=== PATIENT | male | born 1940 | race Caucasian/White ===

== ENCOUNTER 2017-08-21 21:05 | Inpatient (IN) | payer MEDICARE, OTHER, SELFPAY ==
[2017-08-21] VITALS (7 sets, daily range): BP systolic 155–172; BP diastolic 65–90; PULSE 80–86; RESP 12–24; TEMP 37.3; O2SAT 81–99; BMI 23.3
--- NOTE | 2017-08-21 21:19 | EKG12_ITS ---
Test Reason : SOB Blood Pressure : / mmHG Vent. Rate : 082 BPM Atrial Rate : 082 BPM P-R Int : 124 ms QRS Dur : 070 ms QT Int : 360 ms P-R-T Axes : 082 041 066 degrees QTc Int : 420 ms Normal sinus rhythm Septal infarct , age undetermined Abnormal ECG Confirmed by MARITA ASHBY ([id number]), primer expeditor and drier YESENIA MCHUGH ([id number]) on 08/23/2017 12:00:06 PM Referred By: LOIDA Confirmed By:MARITA ASHBY
--- NOTE | 2017-08-21 21:19 | RAD_ITS ---
XR Chest 2 Views INDICATION: COUGH COMPARISON: August 04, 2017 TECHNIQUE: 2 views of the chest FINDINGS: The heart size is enlarged. Central pulmonary vascularity is prominent. Bilateral perihilar opacities are noted and right middle lobe and left basilar chest consolidation. Associated small left-sided pleural effusion. The findings are worsened compared to the prior study. RAD/Chest PA and Lateral IMPRESSION: Bilateral perihilar, right middle lobe and left lower lobe airspace disease with left-sided pleural effusion, most compatible with bilateral pneumonia. Follow-up to resolution is recommended. at 2226 Reported and signed by: Michela Hendricks MD Electronically Signed: Michela Hendricks MD at 21:25 EST Tel , Service support ,
[2017-08-21] MEDS: Ipratropium/Albuterol Sulfate 3 ML AMPUL.NEB INHALATION (21:30)
--- NOTE | 2017-08-21 21:40 | CPS ---
PT WEARS 3L OXYGEN AT HOME.
[2017-08-21 21:45] LABS: Absolute Lymphocyte Count 1.15 X10^3/ul (0.83-4.51); Absolute Neutrophil Count 6.8 X10^3/uL (2.0-7.7); Basophil# 0.04 X10^3/uL; Basophil% 0.4 % (0-1); Eosinophil# 0.26 X10^3/uL; Eosinophils% 2.9 % (0-5); Hematocrit 26.2 % (40-54); Hemoglobin 8.1 g/dl (13.0-16.5); Lymphocyte # 1.15 X10^3/ul (4.0); Lymphocyte % 12.9 % (19-41); Mean Corp Hgb Conc 30.9 g/gl (32-36); Mean Corpuscular Hgb 31.9 pg (27.0-32.0); Mean Corpuscular Volume 103.1 fL (80-94); Mean Platelet Vol. 9.5 fl (6.2-12.0); Monocyte# 0.65 X10^3/uL; Monocyte% 7.3 % (0-10); Neutrophil # 6.81 X10^3/uL (2.7-7.7); Neutrophil % 76.2 % (47-70); Platelet Count 331 K/mm3 (150-450); RBC Distribution Width CV 15.8 % (11.6-14.6); RBC Distribution Width SD 57.7 fl (35.1-43.9); Red Blood Count 2.54 M/mm3 (4.6-6.2); White Blood Count 8.9 K/mm3 (4.4-11.0)
[2017-08-21 21:46] LABS: POSITIVE COUNT NO; POSITIVE DIFFERENTIAL NO; POSITIVE MORPHOLOGY NO
--- NOTE | 2017-08-21 21:58 | ED.RN ---
STILL NEEDS VERIFIED NO LW OR POA
[2017-08-21 22:04] LABS: Lactic Acid 0.6 mmol/L (0.4-2.0)
[2017-08-21 22:06] LABS: Anion Gap 13 (5-15); BUN 80 mg/dL (7-18); BUN/Creat Ratio 9.4 RATIO (10-20); Calcium,Total 7.7 mg/dL (8.5-10.1); Chloride 94 mmol/L (98-107); Creatinine, Serum 8.51 mg/dL (0.70-1.30); EST Glomerular Filtration Rate 7 mL/min (>60); Est Glom Filt Rate - Afr Amer 8 mL/min (>60); Estimated Creatinine Clearance 7.26 ml/min; Glucose 93 mg/dL (70-110); Potassium 5.2 mmol/L (3.5-5.1); Sodium Level 130 mmol/L (136-145)
[2017-08-21] MEDS: MethylPREDNISolone 125 MG/2 ML Vial IV (22:33)
--- NOTE | 2017-08-21 22:46 | PCM.HP.STD ---
Problem List (1) PAF (paroxysmal atrial fibrillation) Status: Chronic (2) IBS (irritable bowel syndrome) Status: Chronic Qualifiers: Irritable bowel syndrome type: unspecified Qualified Code(s): K58.9 - Irritable bowel syndrome without diarrhea (3) Hyperlipemia Status: Chronic Qualifiers: Hyperlipidemia type: unspecified Qualified Code(s): E78.5 - Hyperlipidemia, unspecified (4) HCAP (healthcare-associated pneumonia) Status: Acute (5) ESRD (end stage renal disease) Status: Chronic (6) HTN (hypertension) Status: Chronic Qualifiers: Hypertension type: essential hypertension Qualified Code(s): I10 - Essential (primary) hypertension (7) Rheumatoid arthritis Status: Chronic Qualifiers: Rheumatoid arthritis location: unspecified site Rheumatoid factor presence: unspecified presence Qualified Code(s): M06.9 - Rheumatoid arthritis, unspecified (8) Chronic back pain Status: Chronic Qualifiers: Back pain location: back pain in unspecified location Back pain laterality: unspecified Qualified Code(s): M54.9 - Dorsalgia, unspecified; G89.29 - Other chronic pain (9) Acute respiratory failure with hypoxia Status: Acute History of Present Illness Date of Admission: 08/21/17 Chief Complaint: Dyspnea The patient is a 76 y/o M w/ PMHx: Chronic Diastolic CHF, PAF, Recent dx pericardial effusion, Myoclonic Jerks, ESRD on PD (Dr. Lee), Rheumatoid arthritis, Chronic Back Pain, HTN, Chronic COPD, Chronic Macrocytic anemia recently discharged on 08/07/17 following evaluation and treatment for acute hypoxic respiratory failure secondary to volume overload w/ suspected acute on chronic diastolic heart failure requiring HD x 1 with temp cath placed during prior admission but discontinued upon discharge with 3L NC upon discharge as well as noted thoracentesis who now presents to the ED with ongoing dyspnea, productive cough with yellow sputum with wheezing, worsening over the last 24 hours. In the ED work-up included T 99.2, HR 80s, BP 172/65-->155/69, RR 16, 81% on RA-->99% on NRB-->96% on 6L NC, CBC w/ WBC 8.9, Hgb 8.1, Plts 331 without marked shift, BMP w/ Na 130, K 5.2, Chl 94, BUN/Cr 80/8.51, LA 0.6, trop 0.02, CXR w/ bilateral perihilar right middle lobe and left lower lobe airspace disease with left-sided pleural effusion compatible with bilateral pneumonia, Bld Cx x 2 obtained and pending. In the ED patient administered solumedrol, vanc, rocephin, azithromycin. Past Medical History Past Medical History (Chronic Problems): Chronic Problems (Last Updated 08/16/17 @ 15:08 by Francheska Mahoney) PAF (paroxysmal atrial fibrillation) (Chronic) IBS (irritable bowel syndrome) (Chronic) Hyperlipemia (Chronic) PEARSON (dyspnea on exertion) (Chronic) ESRD (end stage renal disease) (Chronic) HTN (hypertension) (Chronic) Rheumatoid arthritis (Chronic) Chronic back pain (Chronic) Allergies Penicillins Allergy (Verified 08/21/17 21:07) Hives levofloxacin [From Levaquin] Adverse Reaction (Severe, Verified 08/21/17 21:07) Other fluid in lungs Home Medications: Ambulatory Orders Medication Instructions Recorded Amlodipine [Norvasc] 10 mg PO DAILY 12/19/13 Aspirin [Aspirin, Baby] 81 mg PO DAILY@0800 12/19/13 Atorvastatin Calcium [Lipitor] 20 mg PO QHS 12/19/13 Leflunomide [Arava] 20 mg PO DAILY 12/19/13 [place]-3 Fatty Acids/Fish Oil 1 ea PO BID 12/19/13 [[place] 3 1,000 mg Softgel] PredniSONE 10 mg PO PRN PRN 12/19/13 Albuterol Inhaler [Ventolin Hfa] 2 puff INHALATION Q4H PRN PRN 07/31/17 Folic Acid 1 mg PO DAILY@0800 07/31/17 Ipratropium/Albuterol Sulfate 3 ml INHALATION TID PRN PRN 07/31/17 [Duoneb] Lactobacillus Rhamnosus GG 2 ea PO TID 07/31/17 [Culturelle] Sennosides/Docusate Sodium 2 ea PO BID 07/31/17 [Senna-Docusate Sodium Tablet] Amino AC/Protein Hydr/Whey Pro 2 cap PO DAILY 08/04/17 [Liquacel Liquid Protein] Apixaban [Eliquis] 2.5 mg PO BID #60 tab 08/07/17 Atenolol [Tenormin (beta victoriano)] 50 mg PO DAILY #30 tab 08/07/17 Gabapentin [Neurontin] 100 mg PO TIDCM #90 cap 08/07/17 melatonin 2.5 mg chewable tablet 2.5 mg PO HS PRN 08/09/17 pantoprazole 40 mg tablet,delayed 40 mg PO QAM 08/09/17 release potassium chloride ER 20 mEq 20 meq PO QDAY 08/09/17 tablet,extended release ascorbic acid (vitamin C) 500 mg 500 mg PO DAILY 08/16/17 capsule diphenhydramine 25 mg capsule 25 mg PO ONCE 08/16/17 guaifenesin ER 1,200 mg tablet, 1,200 mg PO Q12H 08/16/17 extended release 12 hr liqua-michel 2 cap PO DAILY 08/16/17 polyethylene glycol 3350 17 17 g PO QDAY PRN 08/16/17 gram/dose oral powder stool softner PO PRN 08/16/17 Calcium Acetate [Phoslo Gel Cap] 1,334 mg PO TIDCM 08/21/17 Furosemide [Lasix] 80 mg PO DAILY 08/21/17 Ipratropium/Albuterol Sulfate 3 ml INHALATION TID PRN 08/21/17 [Duoneb] Oxycodone HCl/Acetaminophen 0.5 tab PO Q4H PRN 08/21/17 [Percocet 5-325] Surgical History: - Smoking Status: Former smoker - *Family History Maternal Family History: Family History (Last Updated 08/16/17 @ 15:10 by Francheska Mahoney) Mother Heart disease Sister Kidney disease Brother CVA (cerebral vascular accident) History Items: Heart Disease - CHF Paternal Family History: Family History (Last Updated 08/16/17 @ 15:10 by Francheska Mahoney) Mother Heart disease Sister Kidney disease Brother CVA (cerebral vascular accident) History Items: No pertinent history, - Review of Systems Constitutional: Reports: Malaise, Weakness, Fatigue. Denies: Chills, Fever, Weight Change HEENT: Denies: Head Aches, Sinus Congestion, Sinus Drainage Cardiovascular: Denies: Chest Pain, Palpitations Respiratory: Reports: Cough, Shortness of Breath, Shortness of breath at rest, Shortness of breath upon exertion, Sputum production, Wheezing Gastrointestinal: Denies: Abdominal Pain, Nausea, Vomiting Genitourinary: Denies: Dysuria Musculoskeletal: Denies: Joint Pain, Joint Tenderness Skin: Denies: Rash, Wounds Neurological: Denies: Numbness, Tingling, Focal weakness Psychiatric: Denies: Anxiety, Depression, Homicidal Ideations, Suicidal Ideations Hematologic/ Lymphatic: Reports: Anemia. Denies: Easy Bruising, Easy Bleeding VTE Information - Inpt Only VTE Present on Admission: No VTE Mechan Device Prophylaxis: SCD's VTE Pharm Prophylaxis ordered?: No Reason prophylaxis not ordered:: Treatment Not Indicated Subjective: Seated upright in the ED bed, currently notably improved from initial presentation, on NC, able to speak in full sentences. Objective: Physical Examination: General: awake, alert, oriented x 3 and cooperative, seated upright in the ED bed, marked improvement from initial presentation, able to speak in full sentences, less accessory muscle usage, decreased RR. Skin: normal color, turgor, no icterus, cyanosis. HEENT: AT/NC, EOMI, PERRLA, dry MM, no carotid bruits or JVD noted. Lungs: Severely diminished breath sounds, greater bilateral bases, coarse breath sounds, diffuse expiratory wheezing, improved from initial presentation but ongoing mild accessory muscle usage and increased respiratory rate. Heart: Regular rate and rhythm; no gallop, rub audible. Abdomen: soft, thin habitus, PD access present, NTTP, ND, normal BS, no HSM. Extremities: no cyanosis, clubbing, or edema. Neurological: patient awake, alert, oriented x 3; cognitive function intact; pupils equally reactive to light and accomodation; cranial nerves II-XII grossly normal, moving all 4 extremities, no focal deficits, strength severely globally decreased secondary to acute presentation. Psychiatric: affect appears normal, no acute evidence of depressive or anxiety feelings. - Physical Exam Vital Signs Temp Pulse Resp BP Pulse Ox 99.2 F H 84 16 155/69 H 95 08/21/17 21:09 08/21/17 22:36 08/21/17 22:36 08/21/17 22:36 08/21/17 22:36 Oxygen Flow Rate 6 Oxygen Delivery Method Nasal Cannula Weight: 153 lb 3.54 oz Body Mass Index (BMI) 23.3 Finger Stick Blood Glucose 129 Laboratory Tests Past 24 Hrs 08/21/17 08/21/17 08/21/17 21:27 21:27 21:27 WBC 8.9 RBC 2.54 L Hgb 8.1 L Hct 26.2 L MCV 103.1 H MCH 31.9 MCHC 30.9 L RDW 15.8 H RDW Differential 57.7 H Plt Count 331 MPV 9.5 Immature Gran % (Auto) 0.300 Neut % (Auto) 76.2 H Lymph % (Auto) 12.9 L [place] % (Auto) 7.3 Eos % (Auto) 2.9 Baso % (Auto) 0.4 Absolute Neuts (auto) 6.8 Absolute Lymphs (auto) 1.15 Total Counted Not Reportable Sodium 130 L Potassium 5.2 H Chloride 94 L Carbon Dioxide 23.0 Anion Gap 13 BUN 80 H Creatinine 8.51 H* Estim Creat Clear Calc 7.26 Est GFR (MDRD) Af Amer 8 L Est GFR (MDRD) Non-Af 7 L BUN/Creatinine Ratio 9.4 L Glucose 93 Lactic Acid 0.6 Calcium 7.7 L Troponin I 0.02 Assessment/Plan The patient is a 76 y/o M w/ PMHx: Chronic Diastolic CHF, PAF, Recent dx pericardial effusion, Myoclonic Jerks, ESRD on PD (Dr. Lee), Rheumatoid arthritis, Chronic Back Pain, HTN, Chronic COPD, Chronic Macrocytic anemia recently discharged on 08/07/17 following evaluation and treatment for acute hypoxic respiratory failure secondary to volume overload w/ suspected acute on chronic diastolic heart failure requiring HD x 1 with temp cath placed during prior admission but discontinued upon discharge with 3L NC upon discharge as well as noted thoracentesis who now presents to the ED with ongoing dyspnea, productive cough with yellow sputum with wheezing, worsening over the last 24 hours. (1) Acute Hypoxic Respiratory Failure secondary to HCAP Pneumonia and concurrent acute on Chronic COPD exacerbation: Will admit to [facility] on telemetry, maintain on oxygen with wean as tolerated to room air, continue ATC duonebs, PRN albuterol, maintain on IV solumedrol, maintain on IV Vancomycin, Rocephin and Azithromycin for HCAP coverage secondary to allergies, HOB, IS parameters w/ pending sputum cultures and urine antigens. Bld cx x 2 obtained in the ED. (2) Chronic Diastolic CHF: Maintain on home regimen eliquis, statin, BB, lasix w/ as noted consult with Nephrology for PD. (3) AOCD: Admission Hgb 8.1, stable, trend. (4) ESRD on PD: Will consult nephrology, continue PD per their direction although given current renal function may require additional HD which would necessitate temporary access placement again. (5) PAF: Maintain on home regimen Eliquis as well as atenolol. (6) Hypertension: Continue home regimen including Norvasc, Lasix, atenolol, PRN hydralazine. (7) Hyperlipidemia: Continue home statin regimen. (8) Rheumatoid Arthritis: Holding oral prednisone given taper for #1. (9) GERD: PPI. (10) DVT Prophylaxis: SCDs, eliquis. (11) CODE status: Discussed CODE status at length including difference between FULL code, DNR-CCA and DNR-CC status. Following discussions about the differences in these status, FULL CODE status. Advanced Care Planning Face to Face Time: 17 minutes. Code Visit Inpatient E&M: 65731 Init Hosp L3 Procedures: 20131 Advncd Care Plan 30 Min
--- NOTE | 2017-08-21 22:59 | ED.VISSUMM ---
- ER Visit Summary Date of Service: 08/21/17 Chief Complaint: Shortness of breath History of Present Illness: The patient is a [address] Lee, Dr. Yost, Dr. Crystal, and Dr. Vallecillo. He reports that he has chronic shortness of breath it is gotten much worse today. It is gradually gotten worse. Is mild currently and severe when he walks or lays flat. Is relieved by his oxygen and albuterol. Patient reports that he has a slight cough productive yellow sputum without blood. No fever, chills, cold sweats, chest pain, or other complaints. Physical Examination: Vitals: 99.2, 172/65, 80, 20, 81% on room air which is hypoxic.. General: Well-nourished and well-developed. Head: Normocephalic atraumatic. Neck: Supple, no lymphadenopathy. No JVD. Nontender. Cardiovascular: Regular rate and rhythm. 2 out of 6 systolic murmur. Respiratory: No respiratory distress with moderate wheezing bilaterally. He does have greatly decreased air movement.. Abdominal: Soft, nontender, nondistended, normal bowel sounds. No guarding, rebound, or peritoneal signs. Back: Nontender. Extremities: Nontender, no edema. Skin: Normal color, no rash. Neurologic: Alert and oriented ?3. Cranial nerves II through XII are intact. Normal strength and sensation. Psych: Normal affect. Test Results: EKG is sinus at 82 with no acute changes. Troponin 0 0.02. His CBC is marked for an H&H of 8.1 and 26.2, segmented neutrophils of 76, lymphocytes of 13. His hemoglobin ranged between 7.7 and 9.2 on his admission earlier this year. Chem-7 is marked for sodium 130, potassium 5.2, chloride 94, BUN of 80, creatinine of 8.51, calcium 7.7. Creatinine had ranged between 3.676.83 on his hospitalization earlier this year. Lactic acid is 0.6. Chest x-ray is read by the radiologist as bilateral perihilar, right middle lobe, left lower lobe airspace disease with a left pleural effusion. This is most compatible with bilateral pneumonia. Emergency Department Course and Treatment: Patient was given albuterol Atrovent aerosols. He was placed on 4 L nasal cannula. His post oxygen in the 90s any feels much improved. He is refused BiPAP. Patient technically is a healthcare acquired pneumonia. He is allergic to penicillin and Levaquin. He is given aztreonam and vancomycin IV. To replace the Levaquin he is given Zithromax and Rocephin IV. Patient in his last hospitalization had one round of hemodialysis. He reports the dialysis catheter was removed and he is does not have access at this time. Discussed the fact that he will likely need to have hemodialysis at this time as well. Treatment Plan: Patient was discussed with Dr. Berman. He will be admitted for further evaluation and treatment. Disposition: Admitted in improved, but serious condition. Impression: 1. Pneumonia, healthcare acquired. 2. Left pleural effusion. 3. Acute on chronic respiratory failure. 4. End-stage renal disease on peritoneal dialysis. 5. Anemia. This note was generated with [employer] software. It may contain incorrect words, spelling, and punctuation that were not noted in review of the chart prior to signing ED Disposition - Plan for ED Patient: Chief Complaint: Shortness of Breath Referrals: Arvind Vallecillo MD [Primary Care Provider] -
--- NOTE | 2017-08-21 23:07 | ED.DCSUM_ITS ---
- ER Visit Summary Date of Service: 08/21/17 Chief Complaint: Shortness of breath History of Present Illness: The patient is a [address] Lee, Dr. Yost , Dr. Crystal, and Dr. Vallecillo. He reports that he has chronic shortness of breath it is gotten much worse today. It is gradually gotten worse. Is mild currently and severe when he walks or lays flat. Is relieved by his oxygen and albuterol. Patient reports that he has a slight cough productive yellow sputum without blood. No fever, chills, cold sweats, chest pain, or other complaints. Physical Examination: Vitals: 99.2, 172/65, 80, 20, 81% on room air which is hypoxic.. General: Well-nourished and well-developed. Head: Normocephalic atraumatic. Neck: Supple, no lymphadenopathy. No JVD. Nontender. Cardiovascular: Regular rate and rhythm. 2 out of 6 systolic murmur. Respiratory: No respiratory distress with moderate wheezing bilaterally. He does have greatly decreased air movement.. Abdominal: Soft, nontender, nondistended, normal bowel sounds. No guarding, rebound, or peritoneal signs. Back: Nontender. Extremities: Nontender, no edema. Skin: Normal color, no rash. Neurologic: Alert and oriented ?3. Cranial nerves II through XII are intact. Normal strength and sensation. Psych: Normal affect. Test Results: EKG is sinus at 82 with no acute changes. Troponin 0 0.02. His CBC is marked for an H&H of 8.1 and 26.2, segmented neutrophils of 76, lymphocytes of 13. His hemoglobin ranged between 7.7 and 9.2 on his admission earlier this year. Chem-7 is marked for sodium 130, potassium 5.2, chloride 94 , BUN of 80, creatinine of 8.51, calcium 7.7. Creatinine had ranged between 3.676.83 on his hospitalization earlier this year. Lactic acid is 0.6. Chest x -ray is read by the radiologist as bilateral perihilar, right middle lobe, left lower lobe airspace disease with a left pleural effusion. This is most compatible with bilateral pneumonia. Emergency Department Course and Treatment: Patient was given albuterol Atrovent aerosols. He was placed on 4 L nasal cannula. His post oxygen in the 90s any feels much improved. He is refused BiPAP. Patient technically is a healthcare acquired pneumonia. He is allergic to penicillin and Levaquin. He is given aztreonam and vancomycin IV. To replace the Levaquin he is given Zithromax and Rocephin IV. Patient in his last hospitalization had one round of hemodialysis. He reports the dialysis catheter was removed and he is does not have access at this time. Discussed the fact that he will likely need to have hemodialysis at this time as well. Treatment Plan: Patient was discussed with Dr. Berman. He will be admitted for further evaluation and treatment. Disposition: Admitted in improved, but serious condition. Impression: 1. Pneumonia, healthcare acquired. 2. Left pleural effusion. 3. Acute on chronic respiratory failure. 4. End-stage renal disease on peritoneal dialysis. 5. Anemia. This note was generated with [employer] software. It may contain incorrect words, spelling, and punctuation that were not noted in review of the chart prior to signing ED Disposition - Plan for ED Patient: Chief Complaint: Shortness of Breath Referrals: Arvind Vallecillo MD [Primary Care Provider] -
--- NOTE | 2017-08-21 23:09 | HP.PCM_ITS ---
Problem List (1) PAF (paroxysmal atrial fibrillation) Status: Chronic (2) IBS (irritable bowel syndrome) Status: Chronic Qualifiers: Irritable bowel syndrome type: unspecified Qualified Code(s): K58.9 - Irritable bowel syndrome without diarrhea (3) Hyperlipemia Status: Chronic Qualifiers: Hyperlipidemia type: unspecified Qualified Code(s): E78.5 - Hyperlipidemia , unspecified (4) HCAP (healthcare-associated pneumonia) Status: Acute (5) ESRD (end stage renal disease) Status: Chronic (6) HTN (hypertension) Status: Chronic Qualifiers: Hypertension type: essential hypertension Qualified Code(s): I10 - Essential (primary) hypertension (7) Rheumatoid arthritis Status: Chronic Qualifiers: Rheumatoid arthritis location: unspecified site Rheumatoid factor presence : unspecified presence Qualified Code(s): M06.9 - Rheumatoid arthritis, unspecified (8) Chronic back pain Status: Chronic Qualifiers: Back pain location: back pain in unspecified location Back pain laterality : unspecified Qualified Code(s): M54.9 - Dorsalgia, unspecified; G89.29 - Other chronic pain (9) Acute respiratory failure with hypoxia Status: Acute History of Present Illness Date of Admission: 08/21/17 Chief Complaint: Dyspnea The patient is a 76 y/o M w/ PMHx: Chronic Diastolic CHF, PAF, Recent dx pericardial effusion, Myoclonic Jerks, ESRD on PD (Dr. Lee), Rheumatoid arthritis, Chronic Back Pain, HTN, Chronic COPD, Chronic Macrocytic anemia recently discharged on 08/07/17 following evaluation and treatment for acute hypoxic respiratory failure secondary to volume overload w/ suspected acute on chronic diastolic heart failure requiring HD x 1 with temp cath placed during prior admission but discontinued upon discharge with 3L NC upon discharge as well as noted thoracentesis who now presents to the ED with ongoing dyspnea, productive cough with yellow sputum with wheezing, worsening over the last 24 hours. In the ED work-up included T 99.2, HR 80s, BP 172/65-->155/69, RR 16, 81 % on RA-->99% on NRB-->96% on 6L NC, CBC w/ WBC 8.9, Hgb 8.1, Plts 331 without marked shift, BMP w/ Na 130, K 5.2, Chl 94, BUN/Cr 80/8.51, LA 0.6, trop 0.02, CXR w/ bilateral perihilar right middle lobe and left lower lobe airspace disease with left-sided pleural effusion compatible with bilateral pneumonia, Bld Cx x 2 obtained and pending. In the ED patient administered solumedrol, vanc , rocephin, azithromycin. Past Medical History Past Medical History (Chronic Problems): Chronic Problems (Last Updated 08/16/17 @ 15:08 by Francheska Mahoney) PAF (paroxysmal atrial fibrillation) (Chronic) IBS (irritable bowel syndrome) (Chronic) Hyperlipemia (Chronic) PEARSON (dyspnea on exertion) (Chronic) ESRD (end stage renal disease) (Chronic) HTN (hypertension) (Chronic) Rheumatoid arthritis (Chronic) Chronic back pain (Chronic) Allergies Penicillins Allergy (Verified 08/21/17 21:07) Hives levofloxacin [From Levaquin] Adverse Reaction (Severe, Verified 08/21/17 21:07) Other fluid in lungs Home Medications: Ambulatory Orders Medication Instructions Recorded Amlodipine [Norvasc] 10 mg PO DAILY 12/19/13 Aspirin [Aspirin, Baby] 81 mg PO DAILY@0800 12/19/13 Atorvastatin Calcium [Lipitor] 20 mg PO QHS 12/19/13 Leflunomide [Arava] 20 mg PO DAILY 12/19/13 [place]-3 Fatty Acids/Fish Oil 1 ea PO BID 12/19/13 [[place] 3 1,000 mg Softgel] PredniSONE 10 mg PO PRN PRN 12/19/13 Albuterol Inhaler [Ventolin Hfa] 2 puff INHALATION Q4H PRN PRN 07/31/17 Folic Acid 1 mg PO DAILY@0800 07/31/17 Ipratropium/Albuterol Sulfate 3 ml INHALATION TID PRN PRN 07/31/17 [Duoneb] Lactobacillus Rhamnosus GG 2 ea PO TID 07/31/17 [Culturelle] Sennosides/Docusate Sodium 2 ea PO BID 07/31/17 [Senna-Docusate Sodium Tablet] Amino AC/Protein Hydr/Whey Pro 2 cap PO DAILY 08/04/17 [Liquacel Liquid Protein] Apixaban [Eliquis] 2.5 mg PO BID #60 tab 08/07/17 Atenolol [Tenormin (beta victoriano)] 50 mg PO DAILY #30 tab 08/07/17 Gabapentin [Neurontin] 100 mg PO TIDCM #90 cap 08/07/17 melatonin 2.5 mg chewable tablet 2.5 mg PO HS PRN 08/09/17 pantoprazole 40 mg tablet,delayed 40 mg PO QAM 08/09/17 release potassium chloride ER 20 mEq 20 meq PO QDAY 08/09/17 tablet,extended release ascorbic acid (vitamin C) 500 mg 500 mg PO DAILY 08/16/17 capsule diphenhydramine 25 mg capsule 25 mg PO ONCE 08/16/17 guaifenesin ER 1,200 mg tablet, 1,200 mg PO Q12H 08/16/17 extended release 12 hr liqua-michel 2 cap PO DAILY 08/16/17 polyethylene glycol 3350 17 17 g PO QDAY PRN 08/16/17 gram/dose oral powder stool softner PO PRN 08/16/17 Calcium Acetate [Phoslo Gel Cap] 1,334 mg PO TIDCM 08/21/17 Furosemide [Lasix] 80 mg PO DAILY 08/21/17 Ipratropium/Albuterol Sulfate 3 ml INHALATION TID PRN 08/21/17 [Duoneb] Oxycodone HCl/Acetaminophen 0.5 tab PO Q4H PRN 08/21/17 [Percocet 5-325] Surgical History: - Smoking Status: Former smoker - *Family History Maternal Family History: Family History (Last Updated 08/16/17 @ 15:10 by Francheska Mahoney) Mother Heart disease Sister Kidney disease Brother CVA (cerebral vascular accident) History Items: Heart Disease - CHF Paternal Family History: Family History (Last Updated 08/16/17 @ 15:10 by Francheska Mahoney) Mother Heart disease Sister Kidney disease Brother CVA (cerebral vascular accident) History Items: No pertinent history, - Review of Systems Constitutional: Reports: Malaise, Weakness, Fatigue. Denies: Chills, Fever, Weight Change HEENT: Denies: Head Aches, Sinus Congestion, Sinus Drainage Cardiovascular: Denies: Chest Pain, Palpitations Respiratory: Reports: Cough, Shortness of Breath, Shortness of breath at rest, Shortness of breath upon exertion, Sputum production, Wheezing Gastrointestinal: Denies: Abdominal Pain, Nausea, Vomiting Genitourinary: Denies: Dysuria Musculoskeletal: Denies: Joint Pain, Joint Tenderness Skin: Denies: Rash, Wounds Neurological: Denies: Numbness, Tingling, Focal weakness Psychiatric: Denies: Anxiety, Depression, Homicidal Ideations, Suicidal Ideations Hematologic/ Lymphatic: Reports: Anemia. Denies: Easy Bruising, Easy Bleeding VTE Information - Inpt Only VTE Present on Admission: No VTE Mechan Device Prophylaxis: SCD's VTE Pharm Prophylaxis ordered?: No Reason prophylaxis not ordered:: Treatment Not Indicated Subjective: Seated upright in the ED bed, currently notably improved from initial presentation, on NC, able to speak in full sentences. Objective: Physical Examination: General: awake, alert, oriented x 3 and cooperative, seated upright in the ED bed, marked improvement from initial presentation, able to speak in full sentences, less accessory muscle usage, decreased RR. Skin: normal color, turgor, no icterus, cyanosis. HEENT: AT/NC, EOMI, PERRLA, dry MM, no carotid bruits or JVD noted. Lungs: Severely diminished breath sounds, greater bilateral bases, coarse breath sounds, diffuse expiratory wheezing, improved from initial presentation but ongoing mild accessory muscle usage and increased respiratory rate. Heart: Regular rate and rhythm; no gallop, rub audible. Abdomen: soft, thin habitus, PD access present, NTTP, ND, normal BS, no HSM. Extremities: no cyanosis, clubbing, or edema. Neurological: patient awake, alert, oriented x 3; cognitive function intact; pupils equally reactive to light and accomodation; cranial nerves II-XII grossly normal, moving all 4 extremities, no focal deficits, strength severely globally decreased secondary to acute presentation. Psychiatric: affect appears normal, no acute evidence of depressive or anxiety feelings. - Physical Exam Vital Signs Temp Pulse Resp BP Pulse Ox 99.2 F H 84 16 155/69 H 95 08/21/17 21:09 08/21/17 22:36 08/21/17 22:36 08/21/17 22:36 08/21/17 22:36 Oxygen Flow Rate 6 Oxygen Delivery Method Nasal Cannula Weight: 153 lb 3.54 oz Body Mass Index (BMI) 23.3 Finger Stick Blood Glucose 129 Laboratory Tests Past 24 Hrs 08/21/17 08/21/17 08/21/17 21:27 21:27 21:27 WBC 8.9 RBC 2.54 L Hgb 8.1 L Hct 26.2 L MCV 103.1 H MCH 31.9 MCHC 30.9 L RDW 15.8 H RDW Differential 57.7 H Plt Count 331 MPV 9.5 Immature Gran % (Auto) 0.300 Neut % (Auto) 76.2 H Lymph % (Auto) 12.9 L [place] % (Auto) 7.3 Eos % (Auto) 2.9 Baso % (Auto) 0.4 Absolute Neuts (auto) 6.8 Absolute Lymphs (auto) 1.15 Total Counted Not Reportable Sodium 130 L Potassium 5.2 H Chloride 94 L Carbon Dioxide 23.0 Anion Gap 13 BUN 80 H Creatinine 8.51 H* Estim Creat Clear Calc 7.26 Est GFR (MDRD) Af Amer 8 L Est GFR (MDRD) Non-Af 7 L BUN/Creatinine Ratio 9.4 L Glucose 93 Lactic Acid 0.6 Calcium 7.7 L Troponin I 0.02 Assessment/Plan The patient is a 76 y/o M w/ PMHx: Chronic Diastolic CHF, PAF, Recent dx pericardial effusion, Myoclonic Jerks, ESRD on PD (Dr. Lee), Rheumatoid arthritis, Chronic Back Pain, HTN, Chronic COPD, Chronic Macrocytic anemia recently discharged on 08/07/17 following evaluation and treatment for acute hypoxic respiratory failure secondary to volume overload w/ suspected acute on chronic diastolic heart failure requiring HD x 1 with temp cath placed during prior admission but discontinued upon discharge with 3L NC upon discharge as well as noted thoracentesis who now presents to the ED with ongoing dyspnea, productive cough with yellow sputum with wheezing, worsening over the last 24 hours. (1) Acute Hypoxic Respiratory Failure secondary to HCAP Pneumonia and concurrent acute on Chronic COPD exacerbation: Will admit to [facility] on telemetry, maintain on oxygen with wean as tolerated to room air, continue ATC duonebs, PRN albuterol, maintain on IV solumedrol, maintain on IV Vancomycin, Rocephin and Azithromycin for HCAP coverage secondary to allergies, HOB, IS parameters w / pending sputum cultures and urine antigens. Bld cx x 2 obtained in the ED. (2) Chronic Diastolic CHF: Maintain on home regimen eliquis, statin, BB, lasix w / as noted consult with Nephrology for PD. (3) AOCD: Admission Hgb 8.1, stable, trend. (4) ESRD on PD: Will consult nephrology, continue PD per their direction although given current renal function may require additional HD which would necessitate temporary access placement again. (5) PAF: Maintain on home regimen Eliquis as well as atenolol. (6) Hypertension: Continue home regimen including Norvasc, Lasix, atenolol, PRN hydralazine. (7) Hyperlipidemia: Continue home statin regimen. (8) Rheumatoid Arthritis: Holding oral prednisone given taper for #1. (9) GERD: PPI. (10) DVT Prophylaxis: SCDs, eliquis. (11) CODE status: Discussed CODE status at length including difference between FULL code, DNR-CCA and DNR-CC status. Following discussions about the differences in these status, FULL CODE status. Advanced Care Planning Face to Face Time: 17 minutes. Code Visit Inpatient E&M: 74809 Init Hosp L3 Procedures: 25999 Advncd Care Plan 30 Min
[2017-08-21] MEDS: Ceftriaxone 1 GM/50 ML BAG IV (23:29)
[2017-08-22] VITALS (32 sets, daily range): BP systolic 109–169; BP diastolic 48–99; PULSE 68–89; RESP 10–23; TEMP 36.1–37.1; O2SAT 89–98; BMI 22.7
[2017-08-22] MEDS: oxyCODONE 5 MG Tablet PO ×2 (01:22→08:02)
[2017-08-22] MEDS: guaiFENesin 1,200 MG Tablet 1200 MG PO ×2 (01:23→11:43)
[2017-08-22] MEDS: Ipratropium/Albuterol Sulfate 3 ML AMPUL.NEB INHALATION ×4 (02:30→18:40)
--- NOTE | 2017-08-22 02:30 | CPS ---
pt too hypoxic at this time
[2017-08-22 06:32] LABS: Absolute Lymphocyte Count 0.23 X10^3/ul (0.83-4.51); Absolute Neutrophil Count 7.4 X10^3/uL (2.0-7.7); Basophil# 0.01 X10^3/uL; Basophil% 0.1 % (0-1); Eosinophil# 0.01 X10^3/uL; Eosinophils% 0.1 % (0-5); Hemoglobin 7.2 g/dl (13.0-16.5); Lymphocyte # 0.23 X10^3/ul (4.0); Lymphocyte % 2.9 % (19-41); Mean Corpuscular Hgb 30.8 pg (27.0-32.0); Mean Corpuscular Volume 102.6 fL (80-94); Mean Platelet Vol. 9.7 fl (6.2-12.0); Monocyte# 0.11 X10^3/uL; Monocyte% 1.4 % (0-10); Neutrophil # 7.41 X10^3/uL (2.7-7.7); Neutrophil % 95.1 % (47-70); Platelet Count 323 K/mm3 (150-450); RBC Distribution Width CV 15.5 % (11.6-14.6); RBC Distribution Width SD 56.1 fl (35.1-43.9); Red Blood Count 2.34 M/mm3 (4.6-6.2); White Blood Count 7.8 K/mm3 (4.4-11.0)
[2017-08-22 06:33] LABS: Differential Indicated SCAN CRITERIA MET; POSITIVE COUNT NO; POSITIVE DIFFERENTIAL YES; POSITIVE MORPHOLOGY NO
[2017-08-22 07:01] LABS: Anion Gap 14 (5-15); BUN 83 mg/dL (7-18); BUN/Creat Ratio 9.4 RATIO (10-20); Calcium,Total 7.6 mg/dL (8.5-10.1); Chloride 92 mmol/L (98-107); Creatinine, Serum 8.79 mg/dL (0.70-1.30); EST Glomerular Filtration Rate 6 mL/min (>60); Est Glom Filt Rate - Afr Amer 8 mL/min (>60); Estimated Creatinine Clearance 6.98 ml/min; Glucose 162 mg/dL (70-110); Sodium Level 127 mmol/L (136-145)
[2017-08-22 07:04] LABS: Anisocytosis 2+; Differential Comment SCANNED; Macrocytosis 1+; Rouleaux 1+
[2017-08-22] MEDS: Folic Acid 1 MG Tablet PO (08:05)
[2017-08-22] MEDS: Aspirin 81 MG TAB.CHEW PO (08:05)
[2017-08-22] MEDS: Gabapentin 100 MG Capsule PO ×3 (08:06→16:43)
[2017-08-22] MEDS: Calcium Acetate 667 MG Capsule 1334 MG PO ×2 (08:06→16:44)
[2017-08-22] MEDS: Atenolol 50 MG Tablet PO (08:08)
[2017-08-22] MEDS: Leflunomide 10 MG TABLET 20 MG PO (08:08)
[2017-08-22] MEDS: Senna/Docusate Sodium 1 Tablet 2 TABLET PO ×2 (08:08→20:47)
[2017-08-22] MEDS: Furosemide 80 MG Tablet PO (08:08)
[2017-08-22] MEDS: Ascorbic Acid 500 MG Tablet PO (08:08)
[2017-08-22] MEDS: Pantoprazole Sodium 40 MG Tablet PO (08:08)
[2017-08-22] MEDS: amLODIPine 10 MG Tablet PO (08:08)
[2017-08-22] MEDS: APIXABAN 2.5 MG TABLET PO ×2 (08:08→20:47)
[2017-08-22] MEDS: Omega-3 Acid Ethyl Esters 1 GM Capsule PO ×2 (08:08→20:47)
--- NOTE | 2017-08-22 08:11 | PCM.CONS.GEN ---
Problem List (1) Acute respiratory failure with hypoxia Status: Acute (2) PAF (paroxysmal atrial fibrillation) Status: Chronic (3) IBS (irritable bowel syndrome) Status: Chronic Qualifiers: Irritable bowel syndrome type: unspecified Qualified Code(s): K58.9 - Irritable bowel syndrome without diarrhea (4) Hyperlipemia Status: Chronic Qualifiers: Hyperlipidemia type: unspecified Qualified Code(s): E78.5 - Hyperlipidemia, unspecified (5) ESRD (end stage renal disease) Status: Chronic (6) HTN (hypertension) Status: Chronic Qualifiers: Hypertension type: essential hypertension Qualified Code(s): I10 - Essential (primary) hypertension (7) Rheumatoid arthritis Status: Chronic Qualifiers: Rheumatoid arthritis location: unspecified site Rheumatoid factor presence: unspecified presence Qualified Code(s): M06.9 - Rheumatoid arthritis, unspecified (8) Chronic back pain Status: Chronic Qualifiers: Back pain location: back pain in unspecified location Back pain laterality: unspecified Qualified Code(s): M54.9 - Dorsalgia, unspecified; G89.29 - Other chronic pain Reason for Consult Date of Consultation: 08/22/17 Reason for Consultation: HCAP History of Present Illness: The patient is a 76 year old M with past medical history as below, who was recently admitted in the beginning of July for pericardial effusion and CHF requiring thoracentesis and HD, presented to the emergency room with complaints of increased shortness of breath since dialysis yesterday and yellow sputum production. Patient denied any fever, chills, abdominal pain, or lower extremity edema. He does feel like his abdomen is distended. Notes that his sputum production has not really changed from his baseline. During his last admission, he required hemodialysis with a temporary catheter which was discontinued prior to discharge. He continues with peritoneal dialysis. Patient was seen as a hospital follow up in the pulmonary clinic on 08/09/17 for his respiratory failure and PEARSON. PFTs and a 6 minute walk were ordered at that time. Patient did complete 6 minute walk on 08/16 which revealed the need for 2 L of oxygen at rest and with exertion. The patient was 84% on room air, 2 L was applied and he recovered to 96%. During ambulation, he desaturated to 91% and only ambulated approximately 309 feet in the 6 minutes. Pulmonary function tests have not yet been completed. Patient's echo at the beginning of July showed an estimated EF of 65%, stage I diastolic dysfunction, mildly enlarged left atrium and mildly dilated right ventricle, right atrium moderately enlarged, moderately severe tricuspid valve insufficiency, severe pulmonary hypertension with an RVSP of 61 mmHg. Trivial pericardial effusion. There was no evidence of cardiac tamponade. Patient does have a previous heavy smoking history, but had never seen a software engineer sales prior to his last admission. Initial vital signs in the ER showed blood pressure 172/65, pulse 84, RR 12, 81% on room air and temp of 99.2?F. Chest x-ray showed bilateral perihilar, right middle lobe, and left lower lobe airspace disease with left-sided pleural effusion, most compatible with bilateral pneumonia. Workup in the ER included CBC which revealed no leukocytosis. His hemoglobin was around baseline of 8.1, hematocrit 26.2. Sodium low at 130 and potassium elevated at 5.2. Chloride was low at 94. BUN 80 and creatinine 8.51. Calcium was 7.7. Troponin was negative ?1. Lactate normal at 0.6. Patient was given aerosols and placed on 4 L of oxygen. He had refused BiPAP. He was given aztreonam and vancomycin IV with allergies to penicillin and Levaquin. He was also given IV Zithromax and Rocephin. He was transferred to the progressive care unit for further evaluation and treatment of his left-sided pleural effusion and acute on chronic respiratory failure. Patient is currently afebrile and saturating 94% on a 50% Ventimask, alternating with 5-6 L of oxygen in order to eat and get up to the bathroom. He denies any current sputum production. He does have a nonproductive cough and dyspnea on exertion. States that his shortness of breath is not too bad. States he feels better than the last time he was in the hospital. Patient reports he does have some mild rhinorrhea. He denies any sore throat, hemoptysis, sinus congestion, or headaches. He did not have peritoneal dialysis last night because they came to the ER. He is currently having PD now. Dr. Lee nephrology has been consulted as well. Past Medical History Past Medical History (Chronic Problems): Chronic Problems (Last Updated 08/16/17 @ 15:08 by Francheska Mahoney) PAF (paroxysmal atrial fibrillation) (Chronic) IBS (irritable bowel syndrome) (Chronic) Hyperlipemia (Chronic) PEARSON (dyspnea on exertion) (Chronic) ESRD (end stage renal disease) (Chronic) HTN (hypertension) (Chronic) Rheumatoid arthritis (Chronic) Chronic back pain (Chronic) Allergies Penicillins Allergy (Verified 08/21/17 21:07) Hives levofloxacin [From Levaquin] Adverse Reaction (Severe, Verified 08/21/17 21:07) Other fluid in lungs Home Medications: Ambulatory Orders Medication Instructions Recorded Amlodipine [Norvasc] 10 mg PO DAILY 12/19/13 Aspirin [Aspirin, Baby] 81 mg PO DAILY@0800 12/19/13 Atorvastatin Calcium [Lipitor] 20 mg PO QHS 12/19/13 Leflunomide [Arava] 20 mg PO DAILY 12/19/13 [place]-3 Fatty Acids/Fish Oil 1 ea PO BID 12/19/13 [[place] 3 1,000 mg Softgel] PredniSONE 10 mg PO PRN PRN 12/19/13 Albuterol Inhaler [Ventolin Hfa] 2 puff INHALATION Q4H PRN PRN 07/31/17 Folic Acid 1 mg PO DAILY@0800 07/31/17 Ipratropium/Albuterol Sulfate 3 ml INHALATION TID PRN PRN 07/31/17 [Duoneb] Lactobacillus Rhamnosus GG 2 ea PO TID 07/31/17 [Culturelle] Sennosides/Docusate Sodium 2 ea PO BID 07/31/17 [Senna-Docusate Sodium Tablet] Amino AC/Protein Hydr/Whey Pro 2 cap PO DAILY 08/04/17 [Liquacel Liquid Protein] Apixaban [Eliquis] 2.5 mg PO BID #60 tab 08/07/17 Atenolol [Tenormin (beta victoriano)] 50 mg PO DAILY #30 tab 08/07/17 Gabapentin [Neurontin] 100 mg PO TIDCM #90 cap 08/07/17 melatonin 2.5 mg chewable tablet 2.5 mg PO HS PRN 08/09/17 pantoprazole 40 mg tablet,delayed 40 mg PO QAM 08/09/17 release potassium chloride ER 20 mEq 20 meq PO QDAY 08/09/17 tablet,extended release ascorbic acid (vitamin C) 500 mg 500 mg PO DAILY 08/16/17 capsule diphenhydramine 25 mg capsule 25 mg PO ONCE 08/16/17 guaifenesin ER 1,200 mg tablet, 1,200 mg PO Q12H 08/16/17 extended release 12 hr liqua-michel 2 cap PO DAILY 08/16/17 polyethylene glycol 3350 17 17 g PO QDAY PRN 08/16/17 gram/dose oral powder stool softner PO PRN 08/16/17 Calcium Acetate [Phoslo Gel Cap] 1,334 mg PO TIDCM 08/21/17 Furosemide [Lasix] 80 mg PO DAILY 08/21/17 Ipratropium/Albuterol Sulfate 3 ml INHALATION TID PRN 08/21/17 [Duoneb] Oxycodone HCl/Acetaminophen 0.5 tab PO Q4H PRN 08/21/17 [Percocet 5-325] Surgical History: - Psychiatric History: Anxiety, Depression Lives: Spouse/ Significant Other Smoking Status: Former smoker Tobacco Use: Cigarettes Alcohol: None Drugs: None - *Family History Maternal Family History: Family History (Last Updated 08/16/17 @ 15:10 by Francheska Mahoney) Mother Heart disease Sister Kidney disease Brother CVA (cerebral vascular accident) History Items: Heart Disease - CHF Paternal Family History: Family History (Last Updated 08/16/17 @ 15:10 by Francheska Mahoney) Mother Heart disease Sister Kidney disease Brother CVA (cerebral vascular accident) History Items: No pertinent history, - Review of Systems Constitutional: Reports: Weakness, Fatigue, - - Poor appetite. Denies: Chills, Fever, Night Sweats, Weight Change Eyes: Denies: Vision Change HEENT: Reports: Nasal Congestion, Post Nasal Drip. Denies: Difficulty Swallowing, Sinus Congestion, Sinus Drainage, Sore Throat Cardiovascular: Reports: Orthopnea. Denies: Chest Pain, Chest Tightness, Edema, Light Headedness, Palpitations, Paroxysmal Noc. Dyspnea, Syncope Respiratory: Reports: Cough, Shortness of breath upon exertion, Sputum production - Minimal, Wheezing - Intermittent. Denies: Hemoptysis Gastrointestinal: Reports: - - Feels bloated. Denies: Abdominal Pain, Constipation, Diarrhea, Dyspepsia, Hematemesis, Hematochezia, Nausea, Melena, Vomiting Genitourinary: Reports: - - Low urine output, dialysis. Denies: Dysuria, Frequency, Hematuria Musculoskeletal: Reports: Back Pain - Chronic, - - No cramping. Denies: Muscle pain Skin: Reports: Dryness, Skin Changes - Atrophied Neurological: Reports: - - Chronic numbness and tingling to LEs. Denies: Change in Speech, Slurred speech, Confusion, Difficulty swallowing, Focal weakness, Headaches, Tremor, Seizures Psychiatric: Reports: Anxiety, Depression Endocrine: Denies: Change in Body Habitus, Polydipsia, Polyuria Hematologic/ Lymphatic: Reports: Anemia, Easy Bruising. Denies: Adenopathy, Easy Bleeding, Hx of blood clot Subjective: Patient was seen and examined. He is sitting in bed in no acute distress. He currently has his Venturi mask off and is on room air, checked his pulse ox and he is 70%. Patient wishes to eat at this time, placed him on 6 L and he recovered to 93%. He denies any significant shortness of breath, increase in cough or sputum production, or fevers and chills. He does feel somewhat weak but feels he is at baseline. He does complain of a distended abdomen. No abdominal pain or N/V/D. Objective: Clinical Impression(s) from Imaging Studies Chest X-Ray 08/21/17 21:19 IMPRESSION: Bilateral perihilar, right middle lobe and left lower lobe airspace disease with left-sided pleural effusion, most compatible with bilateral pneumonia. Follow-up to resolution is recommended. at 2226 Reported and signed by: Michela Hendricks MD Electronically Signed: Michela Hendricks MD at 21:25 EST Tel , Service support , - Physical Exam General: Alert, Oriented x3, Cooperative, No apparent distress, Well developed HEENT: Atraumatic, Normocephalic Oral: Moist Mucosa, No Gingival or Mucosal Lesions/ Ulcerations Neck: Supple, No Nodes, Trachea Midline Lungs: No rhonchi, Diminished, Wheezes, - - Bibasilar rales Cardiovascular: Regular rate, Regular Rhythm, Normal S1, Normal S2, No murmurs Abdomen: Bowel Sounds Present, Soft, Non Tender, Distended Extremities: No clubbing, No cyanosis, No edema, Capillary Refill Less than 3 Seconds, - - Vascular changes to lower extremities Skin: No rashes, No breakdown Musculoskeletal: No Tenderness to Palpation of Joints or Extremities Lymphatic: No Cervical, Supraclavicular, or Inguinal Adenopathy Neurological: Cranial nerves II-XII grossly intact, Neuro grossly intact, Motor Exam 5/5 strength throughout Psych/Mental Status: Alert and oriented to time, place, person, mood and affect Vital Signs Temp Pulse Resp BP Pulse Ox 98.1 F 72 18 122/55 H 94 08/22/17 05:12 08/22/17 05:12 08/22/17 05:12 08/22/17 05:12 08/22/17 05:12 Oxygen Flow Rate 6 Oxygen Delivery Method Venturi Mask Weight: 149 lb 14.629 oz Body Mass Index (BMI) 22.7 Laboratory Tests Past 24 Hrs 08/22/17 08/22/17 05:45 05:45 WBC 7.8 RBC 2.34 L Hgb 7.2 L Hct 24.0 L MCV 102.6 H MCH 30.8 MCHC 30.0 L RDW 15.5 H RDW Differential 56.1 H Plt Count 323 MPV 9.7 Immature Gran % (Auto) 0.400 Neut % (Auto) 95.1 H Lymph % (Auto) 2.9 L [place] % (Auto) 1.4 Eos % (Auto) 0.1 Baso % (Auto) 0.1 Absolute Neuts (auto) 7.4 Absolute Lymphs (auto) 0.23 L Total Counted Not Reportable Differential Comment SCANNED Anisocytosis 2+ Macrocytosis 1+ Rouleaux 1+ Sodium 127 L Potassium 6.0 H* Chloride 92 L Carbon Dioxide 21.0 Anion Gap 14 BUN 83 H Creatinine 8.79 H* Estim Creat Clear Calc 6.98 Est GFR (MDRD) Af Amer 8 L Est GFR (MDRD) Non-Af 6 L BUN/Creatinine Ratio 9.4 L Glucose 162 H Calcium 7.6 L Assessment/Plan RECOMMENDATIONS 1. Wean oxygen supplementation to keep saturations greater than 89%, patient's baseline oxygen requirement is 2 L. 2. Encourage incentive spirometer/Acapella (from home) 3. Increase activity as tolerated 4. Continue aerosols and steroids as ordered 5. Continue PD 6. Await nephrology recommendations 7. Would discontinue IV morphine given advanced renal failure 8. Ambulatory pulse ox prior to discharge 9. Follow-up in the pulmonary clinic in about 2 weeks from discharge, pulmonary function tests will need to be rescheduled IMPRESSIONS 1. Acute on chronic respiratory failure with hypoxia Patient was 81% on room air on arrival. States he has not been wearing his oxygen all the time secondary to not feeling very short of breath. He started feeling somewhat worse over the weekend, which progressed through Sunday. Initial chest x-ray showed bilateral perihilar, right middle lobe, and left lower lobe airspace disease with left-sided pleural effusion, most compatible with bilateral pneumonia. No leukocytosis or fevers. Patient missed PD yesterday secondary to coming to the hospital. He does feels abdomen is distended. He has no lower extremity edema. Patient had recent pulmonary exercise test which indicated oxygen requirements of 2 L at rest and with exertion. Baseline pulmonary function tests were originally scheduled for tomorrow, 08/22. He is currently requiring 5-6 L alternating with 50% Ventimask to keep saturations greater than 89%. His respiratory panel and blood cultures are pending. Would obtain sputum culture to rule out infectious process. I suspect patient may have fluid volume overload secondary to his renal failure and stage I diastolic dysfunction according to echo on 07/31/17. Continue to wean oxygen to keep saturations greater than 99%. Encourage incentive spirometer/Acapella. Await infectious workup and discontinue antibiotics if negative. Increase activity as tolerated. Ambulatory pulse ox prior to discharge and patient should follow-up in pulmonary clinic within a couple of weeks of discharge. Unsure if steroids are necessary, however will continue for the time being. Patient's pulmonary function tests will need to be rescheduled since they are supposed to be tomorrow. 2. End-stage renal disease on peritoneal dialysis Dr. Lee, nephrology has been consulted. The patient has been resistant to hemodialysis in the past. Current home dose of Lasix is 80 mg p.o. daily. Plan to see how the patient does after PD treatment today and await nephrology recommendations. Recommend discontinuation of IV morphine given his renal failure. 3. History of rheumatoid arthritis/hypertension/chronic back pain/hyperlipidemia/IBS/paroxysmal atrial fibrillation/severe pulmonary hypertension Complicates care, management, recovery, and prognosis. Patient has been maintained on Eliquis for his PAF, this should be continued. He is somewhat anemic, this should be monitored. His blood pressure was initially elevated but appears to be under control at this time. He is on IV steroids, so blood sugars should be monitored. Thank you for the opportunity to participate in this patient's care, please do not hesitate to contact us with any further questions or concerns. This note was generated with [employer] dictation software. It may contain incorrect words, spelling, and punctuation that were not noted in checking the note before signing.
[2017-08-22] MEDS: Ceftriaxone 1 GM/50 ML BAG IV (09:58)
--- NOTE | 2017-08-22 11:15 | CASEMGMT ---
Chart review completed at this time. Pt with recent admission 07/31-08/07. Please see CM assessment done by Debbi ARREDONDO CM on 08/01. Pt continues on peritoneal dialysis at home and had [facility] set up s/p last discharge. Pt also on 3 liters oxygen at home which he was set up on during last visit. CM to follow for any further discharge planning/needs. Wilfrid ARREDONDO CM
--- NOTE | 2017-08-22 12:26 | PCM.CONS.R ---
Problem List (1) ESRD (end stage renal disease) Status: Chronic Consultation - Renal 08/22/17 PCP/ Referring MD: Requesting physician: Dr Lopez Primary care physician: Arvind Vallecillo MD Reason for Consultation:: ESRD - History of Present Illness History of Present Illness: The patient is a 76 year old M well known to us. ESRD on PD. several hospitalizations recently. Initially with pneumonia, last visit with suspected levoquin overdose requiring HD few sessions, discharged home last week. Was feeling ok until 2 days ago, when he started having increasing dyspnea with yellow colored sputum. currently admitted with diagnosis of Pneumonia and CHF. feels ok today - Allergies Allergies: Allergies Penicillins Allergy (Verified 08/21/17 21:07) Hives levofloxacin [From Levaquin] Adverse Reaction (Severe, Verified 08/21/17 21:07) Other fluid in lungs - Current Medications Current Medications: Current Medications Acetaminophen (Tylenol) 650 mg PO Q4H PRN PRN PRN Reason: FEVER Acetaminophen (Tylenol) 650 mg PO Q6H PRN PRN PRN Reason: Mild Pain (scale 0-3)/T>100.7 Albuterol Sulfate (Ventolin Aerosols) 2.5 mg INHALATION Q2H PRN PRN PRN Reason: SHORTNESS OF BREATH Albuterol/Ipratropium (Duoneb) 3 ml INHALATION Q4H.RT [facility] Last Admin: 08/22/17 07:13 Dose: 3 ml Amlodipine Besylate (Norvasc) 10 mg PO DAILY [facility] Last Admin: 08/22/17 08:08 Dose: 10 mg Apixaban (Eliquis) 2.5 mg PO BID [facility] Last Admin: 08/22/17 08:08 Dose: 2.5 mg Ascorbic Acid (Vitamin C) 500 mg PO DAILY [facility] Last Admin: 08/22/17 08:08 Dose: 500 mg Aspirin (Aspirin, Baby) 81 mg PO DAILY@0800 [facility] Last Admin: 08/22/17 08:05 Dose: 81 mg Atenolol (Tenormin (Beta Vonnie)) 50 mg PO DAILY [facility] Last Admin: 08/22/17 08:08 Dose: 50 mg Atorvastatin Calcium (Lipitor) 20 mg PO QHS [facility] Calcium Acetate (Phoslo Gel Cap) 1,334 mg PO TIDCM [facility] Last Admin: 01/24/18 08:06 Dose: 1,334 mg Folic Acid (Folic Acid) 1 mg PO DAILY@0800 [facility] Last Admin: 08/22/17 08:05 Dose: 1 mg Furosemide (Lasix) 80 mg PO DAILY [facility] Last Admin: 08/22/17 08:08 Dose: 80 mg Gabapentin (Neurontin) 100 mg PO TIDCM [facility] Last Admin: 08/22/17 11:43 Dose: 100 mg Guaifenesin (Mucinex) 1,200 mg PO Q12H [facility] Last Admin: 08/22/17 11:43 Dose: 1,200 mg Ceftriaxone Sodium (Rocephin) 1 gm in 50 mls @ 100 mls/hr IV Q24 [facility] Last Admin: 08/22/17 09:58 Dose: 100 mls/hr Lactobacillus Acidophilus (Acidophilus) 2 tablet PO TID [facility] Last Admin: 08/22/17 05:22 Dose: 2 tablet Leflunomide (Leflunomide) 20 mg PO DAILY [facility] Last Admin: 08/22/17 08:08 Dose: 20 mg Melatonin (Melatonin) 2.5 mg PO QHS PRN Methylprednisolone (Solu-Medrol) 40 mg IV Q8 [facility] Last Admin: 08/22/17 05:20 Dose: 40 mg Morphine Sulfate (Morphine) 2 - 4 mg IV Q3H PRN PRN PRN Reason: Severe Pain (pain scale 6-10) Morphine Sulfate (Morphine) 1 - 2 mg IV Q4H PRN PRN PRN Reason: Moderate Pain (pain scale 4-5) [id number] Ethyl Esters (Lovaza) 1 gm PO BID [facility] Last Admin: 08/22/17 08:08 Dose: 1 gm Ondansetron HCl (Zofran) 4 mg IV Q8H PRN PRN PRN Reason: NAUSEA Oxycodone HCl (Oxyir) 5 mg PO Q4H PRN PRN PRN Reason: Moderate Pain (pain scale 4-5) Last Admin: 08/22/17 08:02 Dose: 5 mg Oxycodone HCl (Oxyir) 2.5 mg PO Q4H PRN PRN PRN Reason: SEVERE PAIN (6-10/10) Pantoprazole Sodium (Protonix) 40 mg PO QAM [facility] Last Admin: 08/22/17 08:08 Dose: 40 mg Polyethylene Glycol (Miralax) 17 gm PO DAILY PRN PRN PRN Reason: CONSTIPATION Senna/Docusate Sodium (Senokot-S, Laury-Colace) 2 tablet PO BID [facility] Last Admin: 08/22/17 08:08 Dose: 2 tablet Sodium Chloride () 5 - 30 ml IV UD PRN PRN Reason: SALINE FLUSH - Past Medical History Past Medical History (Chronic Problems): Chronic Problems (Last Updated 08/16/17 @ 15:08 by Francheska Mahoney) PAF (paroxysmal atrial fibrillation) (Chronic) IBS (irritable bowel syndrome) (Chronic) Hyperlipemia (Chronic) PEARSON (dyspnea on exertion) (Chronic) ESRD (end stage renal disease) (Chronic) HTN (hypertension) (Chronic) Rheumatoid arthritis (Chronic) Chronic back pain (Chronic) - Past Surgical History Surgical History: - - Social History Smoking Status: Former smoker Alcohol: None Drugs: None - Family History Maternal Family History: Family History (Last Updated 08/16/17 @ 15:10 by Francheska Mahoney) Mother Heart disease Sister Kidney disease Brother CVA (cerebral vascular accident) History Items: Heart Disease - CHF Paternal Family History: Family History (Last Updated 08/16/17 @ 15:10 by Francheska Mahoney) Mother Heart disease Sister Kidney disease Brother CVA (cerebral vascular accident) History Items: No pertinent history, - Review of Systems Constitutional: Denies: Chills, Fever, Weight Change HEENT: Denies: Head Aches, Sinus Congestion, Sinus Drainage Cardiovascular: Denies: Chest Pain, Palpitations Respiratory: Denies: Cough, Shortness of breath at rest, Sputum production Gastrointestinal: Denies: Abdominal Pain, Nausea, Vomiting Genitourinary: Denies: Dysuria Musculoskeletal: Denies: Joint Pain, Joint Tenderness Skin: Denies: Rash, Wounds Neurological: Denies: Numbness, Tingling, Focal weakness Psychiatric: Denies: Anxiety, Depression, Homicidal Ideations, Suicidal Ideations Hematologic/ Lymphatic: Denies: Easy Bruising, Easy Bleeding - Physical Exam General: Alert, Oriented x3, Cooperative HEENT: Atraumatic, PERRLA, EOMI, Normocephalic Neck: Supple, No JVD, Negative Carotid Bruits Lungs: Clear to auscultation, Normal air movement Cardiovascular: Regular rate, No murmurs Abdomen: Bowel Sounds Present, Soft, Non Tender Extremities: No edema, Capillary Refill Less than 3 Seconds Skin: No rashes, No breakdown Musculoskeletal: No Tenderness to Palpation of Joints or Extremities Neurological: Cranial nerves II-XII grossly intact Psych/Mental Status: Normal Affect, Appropriate Vital Signs Temp Pulse Resp BP Pulse Ox 98.3 F 75 18 122/58 H 95 08/22/17 11:12 08/22/17 11:12 08/22/17 11:12 08/22/17 11:12 08/22/17 11:12 Oxygen Flow Rate 12 Oxygen Delivery Method Venturi Mask Weight: 68 kg Body Mass Index (BMI) 22.7 Intake and Output for Last 24 Hours 08/20/17 08/21/17 08/22/17 23:59 23:59 23:59 Intake Total 794 / 794 Balance 794 / 794 Laboratory Tests Past 24 Hrs 08/22/17 08/22/17 05:45 05:45 WBC 7.8 RBC 2.34 L Hgb 7.2 L Hct 24.0 L MCV 102.6 H MCH 30.8 MCHC 30.0 L RDW 15.5 H RDW Differential 56.1 H Plt Count 323 MPV 9.7 Immature Gran % (Auto) 0.400 Neut % (Auto) 95.1 H Lymph % (Auto) 2.9 L [place] % (Auto) 1.4 Eos % (Auto) 0.1 Baso % (Auto) 0.1 Absolute Neuts (auto) 7.4 Absolute Lymphs (auto) 0.23 L Total Counted Not Reportable Differential Comment SCANNED Anisocytosis 2+ Macrocytosis 1+ Rouleaux 1+ Sodium 127 L Potassium 6.0 H* Chloride 92 L Carbon Dioxide 21.0 Anion Gap 14 BUN 83 H Creatinine 8.79 H* Estim Creat Clear Calc 6.98 Est GFR (MDRD) Af Amer 8 L Est GFR (MDRD) Non-Af 6 L BUN/Creatinine Ratio 9.4 L Glucose 162 H Calcium 7.6 L Assessment/Plan ESRD. Has been on PD for the last 3 months or so. Several hospitalizations recently mostly related to respiratory issues. Required HD last time related to suspected levoquin overdose. PD arranged for today. ? fluid overload. called dialysis clinic. His weight overall is not different since last discharge i.e around 145 lbs. apparently there was sudden bump in weight at home 2 days ago by 5 lbs. currently he does not have peripheral edema. breathing looks ok. will use 4.25 dextrose today for fluid removal. on review of his most recent clinic labs, he lost most of his residual renal function in last 2 weeks likely related to frequent hospitalizations Anemia. Was supposed to get LATANYA in clinic today. will dose here hyperkalemia. should improve with HD today Hyponatremia. likely related to fluid. should improve with HD overall has been unstable for the last one month. if no significant improvement in breathing status, it may be worthwhile to go to hemodialysis for a short period and then switch back once stabilized. d/w Dr Oliva
--- NOTE | 2017-08-22 12:35 | CON.PCM_ITS ---
Problem List (1) ESRD (end stage renal disease) Status: Chronic Consultation - Renal 08/22/17 PCP/ Referring MD: Requesting physician: Dr Lopez Primary care physician: Arvind Vallecillo MD Reason for Consultation:: ESRD - History of Present Illness History of Present Illness: The patient is a 76 year old M well known to us. ESRD on PD. several hospitalizations recently. Initially with pneumonia, last visit with suspected levoquin overdose requiring HD few sessions, discharged home last week. Was feeling ok until 2 days ago, when he started having increasing dyspnea with yellow colored sputum. currently admitted with diagnosis of Pneumonia and CHF. feels ok today - Allergies Allergies: Allergies Penicillins Allergy (Verified 08/21/17 21:07) Hives levofloxacin [From Levaquin] Adverse Reaction (Severe, Verified 08/21/17 21:07) Other fluid in lungs - Current Medications Current Medications: Current Medications Acetaminophen (Tylenol) 650 mg PO Q4H PRN PRN PRN Reason: FEVER Acetaminophen (Tylenol) 650 mg PO Q6H PRN PRN PRN Reason: Mild Pain (scale 0-3)/T>100.7 Albuterol Sulfate (Ventolin Aerosols) 2.5 mg INHALATION Q2H PRN PRN PRN Reason: SHORTNESS OF BREATH Albuterol/Ipratropium (Duoneb) 3 ml INHALATION Q4H.RT [facility] Last Admin: 08/22/17 07:13 Dose: 3 ml Amlodipine Besylate (Norvasc) 10 mg PO DAILY [facility] Last Admin: 08/22/17 08:08 Dose: 10 mg Apixaban (Eliquis) 2.5 mg PO BID [facility] Last Admin: 08/22/17 08:08 Dose: 2.5 mg Ascorbic Acid (Vitamin C) 500 mg PO DAILY [facility] Last Admin: 08/22/17 08:08 Dose: 500 mg Aspirin (Aspirin, Baby) 81 mg PO DAILY@0800 [facility] Last Admin: 08/22/17 08:05 Dose: 81 mg Atenolol (Tenormin (Beta Vonnie)) 50 mg PO DAILY [facility] Last Admin: 08/22/17 08:08 Dose: 50 mg Atorvastatin Calcium (Lipitor) 20 mg PO QHS [facility] Calcium Acetate (Phoslo Gel Cap) 1,334 mg PO TIDCM [facility] Last Admin: 01/24/18 08:06 Dose: 1,334 mg Folic Acid (Folic Acid) 1 mg PO DAILY@0800 [facility] Last Admin: 08/22/17 08:05 Dose: 1 mg Furosemide (Lasix) 80 mg PO DAILY [facility] Last Admin: 08/22/17 08:08 Dose: 80 mg Gabapentin (Neurontin) 100 mg PO TIDCM [facility] Last Admin: 08/22/17 11:43 Dose: 100 mg Guaifenesin (Mucinex) 1,200 mg PO Q12H [facility] Last Admin: 08/22/17 11:43 Dose: 1,200 mg Ceftriaxone Sodium (Rocephin) 1 gm in 50 mls @ 100 mls/hr IV Q24 [facility] Last Admin: 08/22/17 09:58 Dose: 100 mls/hr Lactobacillus Acidophilus (Acidophilus) 2 tablet PO TID [facility] Last Admin: 08/22/17 05:22 Dose: 2 tablet Leflunomide (Leflunomide) 20 mg PO DAILY [facility] Last Admin: 08/22/17 08:08 Dose: 20 mg Melatonin (Melatonin) 2.5 mg PO QHS PRN Methylprednisolone (Solu-Medrol) 40 mg IV Q8 [facility] Last Admin: 08/22/17 05:20 Dose: 40 mg Morphine Sulfate (Morphine) 2 - 4 mg IV Q3H PRN PRN PRN Reason: Severe Pain (pain scale 6-10) Morphine Sulfate (Morphine) 1 - 2 mg IV Q4H PRN PRN PRN Reason: Moderate Pain (pain scale 4-5) [id number] Ethyl Esters (Lovaza) 1 gm PO BID [facility] Last Admin: 08/22/17 08:08 Dose: 1 gm Ondansetron HCl (Zofran) 4 mg IV Q8H PRN PRN PRN Reason: NAUSEA Oxycodone HCl (Oxyir) 5 mg PO Q4H PRN PRN PRN Reason: Moderate Pain (pain scale 4-5) Last Admin: 08/22/17 08:02 Dose: 5 mg Oxycodone HCl (Oxyir) 2.5 mg PO Q4H PRN PRN PRN Reason: SEVERE PAIN (6-10/10) Pantoprazole Sodium (Protonix) 40 mg PO QAM [facility] Last Admin: 08/22/17 08:08 Dose: 40 mg Polyethylene Glycol (Miralax) 17 gm PO DAILY PRN PRN PRN Reason: CONSTIPATION Senna/Docusate Sodium (Senokot-S, Laury-Colace) 2 tablet PO BID [facility] Last Admin: 08/22/17 08:08 Dose: 2 tablet Sodium Chloride () 5 - 30 ml IV UD PRN PRN Reason: SALINE FLUSH - Past Medical History Past Medical History (Chronic Problems): Chronic Problems (Last Updated 08/16/17 @ 15:08 by Francheska Mahoney) PAF (paroxysmal atrial fibrillation) (Chronic) IBS (irritable bowel syndrome) (Chronic) Hyperlipemia (Chronic) PEARSON (dyspnea on exertion) (Chronic) ESRD (end stage renal disease) (Chronic) HTN (hypertension) (Chronic) Rheumatoid arthritis (Chronic) Chronic back pain (Chronic) - Past Surgical History Surgical History: - - Social History Smoking Status: Former smoker Alcohol: None Drugs: None - Family History Maternal Family History: Family History (Last Updated 08/16/17 @ 15:10 by Francheska Mahoney) Mother Heart disease Sister Kidney disease Brother CVA (cerebral vascular accident) History Items: Heart Disease - CHF Paternal Family History: Family History (Last Updated 08/16/17 @ 15:10 by Francheska Mahoney) Mother Heart disease Sister Kidney disease Brother CVA (cerebral vascular accident) History Items: No pertinent history, - Review of Systems Constitutional: Denies: Chills, Fever, Weight Change HEENT: Denies: Head Aches, Sinus Congestion, Sinus Drainage Cardiovascular: Denies: Chest Pain, Palpitations Respiratory: Denies: Cough, Shortness of breath at rest, Sputum production Gastrointestinal: Denies: Abdominal Pain, Nausea, Vomiting Genitourinary: Denies: Dysuria Musculoskeletal: Denies: Joint Pain, Joint Tenderness Skin: Denies: Rash, Wounds Neurological: Denies: Numbness, Tingling, Focal weakness Psychiatric: Denies: Anxiety, Depression, Homicidal Ideations, Suicidal Ideations Hematologic/ Lymphatic: Denies: Easy Bruising, Easy Bleeding - Physical Exam General: Alert, Oriented x3, Cooperative HEENT: Atraumatic, PERRLA, EOMI, Normocephalic Neck: Supple, No JVD, Negative Carotid Bruits Lungs: Clear to auscultation, Normal air movement Cardiovascular: Regular rate, No murmurs Abdomen: Bowel Sounds Present, Soft, Non Tender Extremities: No edema, Capillary Refill Less than 3 Seconds Skin: No rashes, No breakdown Musculoskeletal: No Tenderness to Palpation of Joints or Extremities Neurological: Cranial nerves II-XII grossly intact Psych/Mental Status: Normal Affect, Appropriate Vital Signs Temp Pulse Resp BP Pulse Ox 98.3 F 75 18 122/58 H 95 08/22/17 11:12 08/22/17 11:12 08/22/17 11:12 08/22/17 11:12 08/22/17 11:12 Oxygen Flow Rate 12 Oxygen Delivery Method Venturi Mask Weight: 68 kg Body Mass Index (BMI) 22.7 Intake and Output for Last 24 Hours 08/20/17 08/21/17 08/22/17 23:59 23:59 23:59 Intake Total 794 / 794 Balance 794 / 794 Laboratory Tests Past 24 Hrs 08/22/17 08/22/17 05:45 05:45 WBC 7.8 RBC 2.34 L Hgb 7.2 L Hct 24.0 L MCV 102.6 H MCH 30.8 MCHC 30.0 L RDW 15.5 H RDW Differential 56.1 H Plt Count 323 MPV 9.7 Immature Gran % (Auto) 0.400 Neut % (Auto) 95.1 H Lymph % (Auto) 2.9 L [place] % (Auto) 1.4 Eos % (Auto) 0.1 Baso % (Auto) 0.1 Absolute Neuts (auto) 7.4 Absolute Lymphs (auto) 0.23 L Total Counted Not Reportable Differential Comment SCANNED Anisocytosis 2+ Macrocytosis 1+ Rouleaux 1+ Sodium 127 L Potassium 6.0 H* Chloride 92 L Carbon Dioxide 21.0 Anion Gap 14 BUN 83 H Creatinine 8.79 H* Estim Creat Clear Calc 6.98 Est GFR (MDRD) Af Amer 8 L Est GFR (MDRD) Non-Af 6 L BUN/Creatinine Ratio 9.4 L Glucose 162 H Calcium 7.6 L Assessment/Plan ESRD. Has been on PD for the last 3 months or so. Several hospitalizations recently mostly related to respiratory issues. Required HD last time related to suspected levoquin overdose. PD arranged for today. ? fluid overload. called dialysis clinic. His weight overall is not different since last discharge i.e around 145 lbs. apparently there was sudden bump in weight at home 2 days ago by 5 lbs. currently he does not have peripheral edema. breathing looks ok. will use 4.25 dextrose today for fluid removal. on review of his most recent clinic labs, he lost most of his residual renal function in last 2 weeks likely related to frequent hospitalizations Anemia. Was supposed to get LATANYA in clinic today. will dose here hyperkalemia. should improve with HD today Hyponatremia. likely related to fluid. should improve with HD overall has been unstable for the last one month. if no significant improvement in breathing status, it may be worthwhile to go to hemodialysis for a short period and then switch back once stabilized. d/w Dr Oliva
--- NOTE | 2017-08-22 13:44 | PCM.PROGNOTE ---
Subjective: Patient seen and examined. Very lethargic and difficult to arouse. Does arouse to noxious stimuli for a brief amount of time. Patient appears diaphoretic. Currently on Ventimask 50% FiO2, O2 saturation 95%. Currently undergoing peritoneal hemodialysis. - Physical Exam General: Lethargic HEENT: Atraumatic, PERRLA, EOMI, Normocephalic Neck: Supple, No JVD, Negative Carotid Bruits Lungs: Diminished, Rales, Wheezes Cardiovascular: Regular rate, Regular Rhythm, Normal S1, Normal S2, No murmurs Abdomen: Bowel Sounds Present, Soft, Non Tender, Distended Extremities: No clubbing, No cyanosis, No edema, Capillary Refill Less than 3 Seconds Skin: No rashes, No breakdown Musculoskeletal: No Tenderness to Palpation of Joints or Extremities Neurological: Cranial nerves II-XII grossly intact, Neuro grossly intact Psych/Mental Status: Normal Affect, Appropriate Vital Signs Temp Pulse Resp BP Pulse Ox 98.3 F 75 18 122/58 H 95 08/22/17 11:12 08/22/17 11:12 08/22/17 11:12 08/22/17 11:12 08/22/17 11:12 Oxygen Flow Rate 12 Oxygen Delivery Method Venturi Mask Weight: 68 kg Body Mass Index (BMI) 22.7 Intake and Output for Last 24 Hours 08/20/17 08/21/17 08/22/17 23:59 23:59 23:59 Intake Total 794 / 794 Balance 794 / 794 Laboratory Tests Past 24 Hrs 08/22/17 08/22/17 05:45 05:45 WBC 7.8 RBC 2.34 L Hgb 7.2 L Hct 24.0 L MCV 102.6 H MCH 30.8 MCHC 30.0 L RDW 15.5 H RDW Differential 56.1 H Plt Count 323 MPV 9.7 Immature Gran % (Auto) 0.400 Neut % (Auto) 95.1 H Lymph % (Auto) 2.9 L [place] % (Auto) 1.4 Eos % (Auto) 0.1 Baso % (Auto) 0.1 Absolute Neuts (auto) 7.4 Absolute Lymphs (auto) 0.23 L Total Counted Not Reportable Differential Comment SCANNED Anisocytosis 2+ Macrocytosis 1+ Rouleaux 1+ Sodium 127 L Potassium 6.0 H* Chloride 92 L Carbon Dioxide 21.0 Anion Gap 14 BUN 83 H Creatinine 8.79 H* Estim Creat Clear Calc 6.98 Est GFR (MDRD) Af Amer 8 L Est GFR (MDRD) Non-Af 6 L BUN/Creatinine Ratio 9.4 L Glucose 162 H Calcium 7.6 L Assessment/Plan Patient is a 76-year-old male admitted 08/21/2017 due to dyspnea. He has a past medical history of chronic diastolic CHF, paroxysmal atrial for ablation, recent diagnosis pericardial effusion, myoclonic jerks, end-stage renal disease on peritoneal dialysis, rheumatoid arthritis, chronic back pain, hypertension, chronic COPD, chronic macrocytic anemia. 1. Acute hypoxic respiratory failure-suspect secondary to fluid overload related to ESRD/CHF. Infectious process including suspected pneumonia ruled out. Discontinue antibiotics. No leukocytosis. Afebrile. Oxygen 95% on 50% Ventimask. Patient was scheduled to follow-up with pulmonary for pulmonary function test. Will need further outpatient follow-up when patient is stable. IS/PEP. Albuterol DuoNeb aerosols. Patient currently receiving PD, nephrology consulted. Patient may require HD. 2. Acute on chronic diastolic CHF-recent ECHO 08/01/2017 showed an estimated ejection fraction of 65%, stage I diastolic dysfunction, moderately severe tricuspid valve insufficiency, severe pulmonary hypertension. Continue home Lasix 80 mg daily. Anticipate improvement with dialysis. Continue to monitor. 3. Chronic COPD-no acute COPD exacerbation. Continue albuterol/DuoNeb aerosols. 4. Anemia of chronic disease-hemoglobin 7.2. Baseline hemoglobin 7-8. Monitor CBC. Transfuse if less than 7. 5. End-stage renal disease on peritoneal dialysis- Follows with Dr. Lee. Receiving peritoneal dialysis today. Nephrology recommending hemodialysis for a short period of time until more stable. 6. Paroxysmal atrial fibrillation-rate controlled. Continue Eliquis and beta-victoriano. 7. Hypertension-stable, continue to monitor. Continue home regimen of Norvasc, Lasix, atenolol. 8. Hyperlipidemia-continue statin. 9. Rheumatoid arthritis-home prednisone regimen discontinued given current IV Solu-Medrol. 10. GERD-continue PPI. DVT prophylaxis-Eliquis. This patient was seen by KATJA Panda under the supervision of Dr. Lopez.
--- NOTE | 2017-08-22 13:59 | NURSING ---
upon entering room pt is found to be very hard to arouse, diaphoretic, and with labored breathing. pt had to be sternal rubbed in order to arouse. he then did arouse and spoke to us briefly, then fell back asleep. vitals obtained, blood glucose obtained. Dr Oliva in the room to see the patient at this time. Cecelia Gaspar also in the room to see the patient. new orders obtained. pt starting to arouse easier to his name, and is beginning to remain awake, and is talking with Dr. Oliva. will monitor.
[2017-08-22 14:25] LABS: Allen Test POS; Base Excess -8 mmol/L (-2 to +2); Bicarbonate 19.5 mmol/L (22-26); Blood Gas Specimen Type ART; O2 Delivery Device Nasal Can; PO2 81 mmHG (75-100); SITE L Radial; SO2 93 % (95-99); Time Given 1405; Total Carbon Dioxide 21 mmol/L; pCO2 48.5 mmHg (35-45); pH 7.21 (7.35-7.45)
[2017-08-22 14:41] LABS: Glucose 566 mg/dL (70-110)
[2017-08-22 15:26] LABS: Anion Gap 15 (5-15); BUN 79 mg/dL (7-18); BUN/Creat Ratio 9.2 RATIO (10-20); Calcium,Total 7.5 mg/dL (8.5-10.1); Chloride 92 mmol/L (98-107); Creatinine, Serum 8.59 mg/dL (0.70-1.30); EST Glomerular Filtration Rate 7 mL/min (>60); Est Glom Filt Rate - Afr Amer 8 mL/min (>60); Estimated Creatinine Clearance 7.15 ml/min; Glucose 584 mg/dL (70-110); Potassium 5.4 mmol/L (3.5-5.1); Sodium Level 126 mmol/L (136-145)
[2017-08-22 15:39] LABS: Hemoglobin A1c 5.9 % (4.2-6.3)
[2017-08-22 15:56] LABS: Bedside Glucose > 500 mg/dL (70-110)
[2017-08-22 15:56] LABS: Bedside Glucose > 500 mg/dL (70-110)
[2017-08-22 16:31] LABS: Bedside Glucose 430 mg/dL (70-110)
--- NOTE | 2017-08-22 19:05 | NURSING ---
pt's called the nurse into the room and states that she cannot get him to wake up. pt is very hard to arouse, and has a mild response to sternal rub. he moaned and made a facial grimmace. vitals signs are all stable at this time. respirations are even, and unlabored, and shallow, pulse ox is 98% on 6L NC. Dr Lopez notified. RT in room obtaining ABG at this time. blood glucose obtained. will monitor.
[2017-08-22 19:16] LABS: Bedside Glucose 337 mg/dL (70-110)
[2017-08-22 19:21] LABS: Allen Test POS; Base Excess -5 mmol/L (-2 to +2); Bicarbonate 22.5 mmol/L (22-26); Blood Gas Specimen Type ART; O2 Delivery Device Nasal Can; PO2 109 mmHG (75-100); SITE R Radial; SO2 97 % (95-99); Time Given 1905; Total Carbon Dioxide 24 mmol/L; pCO2 50.8 mmHg (35-45); pH 7.26 (7.35-7.45)
--- NOTE | 2017-08-22 19:27 | NURSING ---
Respiratory therapist in the room at this time placing the patient on bipap. pt remains difficult to arouse, with VSS.
--- NOTE | 2017-08-22 19:43 | NURSING ---
Dr Berman notified of pt condition at this time, new orders obtained.
--- NOTE | 2017-08-22 19:58 | NURSING ---
report called to Perri ARREDONDO in ICU
[2017-08-22 20:04] LABS: Ammonia < 10.0 umol/L (11-32)
--- NOTE | 2017-08-22 20:15 | NURSING ---
Pt transferred to icu at this time.
--- NOTE | 2017-08-22 20:25 | NURSING ---
Pt arrives to ICU awake, alert, and appropriate. Pt denies SOB and does not appear to be labored in breathing on 6L
[2017-08-22] MEDS: Atorvastatin Calcium 20 MG Tablet PO (20:47)
--- NOTE | 2017-08-22 21:37 | DIALYSIS ---
[facility] tx complete, emergency disconnect made aseptically. Pt transferred to ICU. Effluent drain in bags clear, pale yellow, no fibrin. Pt abdomen non-tender. UF 2044mls.
--- NOTE | 2017-08-22 21:40 | DIALYSIS ---
[facility] tx initiated. Total volume 62854 mls using 2.5% dextrose solution. fill volume 2000 mls x 5 fills. No last fill. Dressing clean, dry and intact. Report to Perri
[2017-08-22 22:14] LABS: M R Staph aureus DNA By PCR Negative (Negative); Probe Check PASS; Specimen Processing Control PASS
[2017-08-22 22:27] LABS: Bedside Glucose 129 mg/dL (70-110)
[2017-08-23] VITALS (22 sets, daily range): BP systolic 99–153; BP diastolic 51–86; PULSE 72–96; RESP 12–20; TEMP 36.4–36.9; O2SAT 94–100
[2017-08-23] MEDS: guaiFENesin 1,200 MG Tablet 1200 MG PO ×3 (00:09→22:43)
[2017-08-23] MEDS: Ipratropium/Albuterol Sulfate 3 ML AMPUL.NEB INHALATION ×5 (01:40→21:45)
[2017-08-23 02:17] LABS: Bedside Glucose 141 mg/dL (70-110)
[2017-08-23 04:10] LABS: Hematocrit 22.7 % (40-54); Hemoglobin 6.9 g/dl (13.0-16.5); Mean Corp Hgb Conc 30.4 g/gl (32-36); Mean Corpuscular Hgb 30.9 pg (27.0-32.0); Mean Corpuscular Volume 101.8 fL (80-94); Mean Platelet Vol. 9.4 fl (6.2-12.0); Platelet Count 333 K/mm3 (150-450); RBC Distribution Width CV 15.2 % (11.6-14.6); RBC Distribution Width SD 53.7 fl (35.1-43.9); Red Blood Count 2.23 M/mm3 (4.6-6.2)
[2017-08-23 04:24] LABS: Scan Indicated on CBC? Y/N NO
[2017-08-23 04:50] LABS: Anion Gap 14 (5-15); BUN 70 mg/dL (7-18); Calcium,Total 7.8 mg/dL (8.5-10.1); Chloride 93 mmol/L (98-107); Creatinine, Serum 7.76 mg/dL (0.70-1.30); EST Glomerular Filtration Rate 7 mL/min (>60); Est Glom Filt Rate - Afr Amer 9 mL/min (>60); Estimated Creatinine Clearance 7.91 ml/min; Glucose 212 mg/dL (70-110); Potassium 4.6 mmol/L (3.5-5.1); Sodium Level 131 mmol/L (136-145)
[2017-08-23] MEDS: 0.9% NaCl Peripheral Flush Adult/Peds IV (05:44)
[2017-08-23 05:56] LABS: Bedside Glucose 244 mg/dL (70-110)
--- NOTE | 2017-08-23 07:15 | PCM.PN.INT ---
Subjective: Patient seen and examined yesterday. Overnight, patient had hyperglycemia and was transferred to the intensive care unit. Since being in the intensive care unit, patient's PD fluid was changed to 2.5 g. Blood sugars have significantly improved. Patient has remained hemodynamically stable on 6 L nasal cannula. No BiPAP rescue is been required. Patient's mentation has improved compared to yesterday. General: Alert, Oriented x3, Cooperative, No apparent distress, - - Appears older than stated age. Speaking in full sentences. HEENT: Atraumatic, PERRLA, EOMI, Normocephalic, - - No scleral icterus or injection noted. Oral: Moist Mucosa, No Gingival or Mucosal Lesions/ Ulcerations Neck: Supple, No JVD, No Nodes, Trachea Midline Lungs: No rhonchi, No rales, Diminished, Wheezes - Bilateral, - - Symmetric expansion. No dullness to percussion. Cardiovascular: Regular rate, Regular Rhythm, Normal S1, Normal S2, Murmur - Grade 2 out of 6 systolic ejection murmur at the right sternal border, No rub noted, No Gallop Abdomen: Bowel Sounds Present, Soft, Non Tender, Distended Extremities: No clubbing, No cyanosis, Capillary Refill Less than 3 Seconds, Edema Skin: No rashes, No breakdown, - - PD cath is clean, dry and intact. Musculoskeletal: No Tenderness to Palpation of Joints or Extremities Lymphatic: No Cervical, Supraclavicular, or Inguinal Adenopathy Neurological: Cranial nerves II-XII grossly intact, Neuro grossly intact, Motor Exam 5/5 strength throughout Psych/Mental Status: Alert and oriented to time, place, person, mood and affect Vital Signs Temp Pulse Resp BP Pulse Ox 36.6 C 72 18 123/55 H 97 08/23/17 04:00 08/23/17 07:00 08/23/17 07:00 08/23/17 07:00 08/23/17 07:00 Oxygen Flow Rate 6 Oxygen Delivery Method Nasal Cannula Weight: 70.8 kg Body Mass Index (BMI) 22.7 Intake and Output for Last 24 Hours 08/21/17 08/22/17 08/23/17 23:59 23:59 23:59 Intake Total 1274 / 1274 110 / 110 Output Total 0 / 0 Balance 1274 / 1274 110 / 110 Labs (Last 48 Hours) 08/22/17 08/22/17 08/22/17 05:45 05:45 05:45 WBC 7.8 RBC 2.34 L Hgb 7.2 L Hct 24.0 L MCV 102.6 H MCH 30.8 MCHC 30.0 L RDW 15.5 H RDW Differential 56.1 H Plt Count 323 MPV 9.7 Immature Gran % (Auto) 0.400 Neut % (Auto) 95.1 H Lymph % (Auto) 2.9 L [place] % (Auto) 1.4 Eos % (Auto) 0.1 Baso % (Auto) 0.1 Absolute Neuts (auto) 7.4 Absolute Lymphs (auto) 0.23 L Total Counted Not Reportable Differential Comment SCANNED Anisocytosis 2+ Macrocytosis 1+ Rouleaux 1+ Specimen Type Sample Site pH Bicarbonate Actual POC Total CO2 Base Excess O2 Saturation ABG pCO2 ABG pO2 Sarthak Test O2 Delivery Device Liter Flow Blood Gas Notified Whom Blood Gas Notified Time Sodium 127 L Potassium 6.0 H* Chloride 92 L Carbon Dioxide 21.0 Anion Gap 14 BUN 83 H Creatinine 8.79 H* Estim Creat Clear Calc 6.98 Est GFR (MDRD) Af Amer 8 L Est GFR (MDRD) Non-Af 6 L BUN/Creatinine Ratio 9.4 L Glucose 162 H Hemoglobin A1c 5.9 Calcium 7.6 L Ammonia Acetone Level MRSA (PCR) POC Glucose 08/22/17 08/22/17 08/22/17 13:42 13:45 14:12 WBC RBC Hgb Hct MCV MCH MCHC RDW RDW Differential Plt Count MPV Immature Gran % (Auto) Neut % (Auto) Lymph % (Auto) [place] % (Auto) Eos % (Auto) Baso % (Auto) Absolute Neuts (auto) Absolute Lymphs (auto) Total Counted Differential Comment Anisocytosis Macrocytosis Rouleaux Specimen Type Sample Site pH Bicarbonate Actual POC Total CO2 Base Excess O2 Saturation ABG pCO2 ABG pO2 Sarthak Test O2 Delivery Device Liter Flow Blood Gas Notified Whom Blood Gas Notified Time Sodium Potassium Chloride Carbon Dioxide Anion Gap BUN Creatinine Estim Creat Clear Calc Est GFR (MDRD) Af Amer Est GFR (MDRD) Non-Af BUN/Creatinine Ratio Glucose 566 H* Hemoglobin A1c Calcium Ammonia Acetone Level MRSA (PCR) POC Glucose > 500 H* > 500 H* 08/22/17 08/22/17 08/22/17 14:12 14:12 14:18 WBC RBC Hgb Hct MCV MCH MCHC RDW RDW Differential Plt Count MPV Immature Gran % (Auto) Neut % (Auto) Lymph % (Auto) [place] % (Auto) Eos % (Auto) Baso % (Auto) Absolute Neuts (auto) Absolute Lymphs (auto) Total Counted Differential Comment Anisocytosis Macrocytosis Rouleaux Specimen Type ART Sample Site L Radial pH 7.21 L Bicarbonate Actual 19.5 L POC Total CO2 21 Base Excess -8 L O2 Saturation 93 L ABG pCO2 48.5 H ABG pO2 81 Sarthak Test POS O2 Delivery Device Nasal Can Liter Flow 6.0 Blood Gas Notified Whom ICU Blood Gas Notified Time 1405 Sodium 126 L Potassium 5.4 H Chloride 92 L Carbon Dioxide 19.0 L Anion Gap 15 BUN 79 H Creatinine 8.59 H* Estim Creat Clear Calc 7.15 Est GFR (MDRD) Af Amer 8 L Est GFR (MDRD) Non-Af 7 L BUN/Creatinine Ratio 9.2 L Glucose 584 H* Hemoglobin A1c Calcium 7.5 L Ammonia Acetone Level NEGATIVE MRSA (PCR) POC Glucose 08/22/17 08/22/17 08/22/17 16:21 18:58 19:13 WBC RBC Hgb Hct MCV MCH MCHC RDW RDW Differential Plt Count MPV Immature Gran % (Auto) Neut % (Auto) Lymph % (Auto) [place] % (Auto) Eos % (Auto) Baso % (Auto) Absolute Neuts (auto) Absolute Lymphs (auto) Total Counted Differential Comment Anisocytosis Macrocytosis Rouleaux Specimen Type ART Sample Site R Radial pH 7.26 L Bicarbonate Actual 22.5 POC Total CO2 24 Base Excess -5 L O2 Saturation 97 ABG pCO2 50.8 H ABG pO2 109 H Sarthak Test POS O2 Delivery Device Nasal Can Liter Flow 6.0 Blood Gas Notified Whom HOSP Blood Gas Notified Time 1905 Sodium Potassium Chloride Carbon Dioxide Anion Gap BUN Creatinine Estim Creat Clear Calc Est GFR (MDRD) Af Amer Est GFR (MDRD) Non-Af BUN/Creatinine Ratio Glucose Hemoglobin A1c Calcium Ammonia Acetone Level MRSA (PCR) POC Glucose 430 H 337 H 08/22/17 08/22/17 08/22/17 19:25 20:30 22:16 WBC RBC Hgb Hct MCV MCH MCHC RDW RDW Differential Plt Count MPV Immature Gran % (Auto) Neut % (Auto) Lymph % (Auto) [place] % (Auto) Eos % (Auto) Baso % (Auto) Absolute Neuts (auto) Absolute Lymphs (auto) Total Counted Differential Comment Anisocytosis Macrocytosis Rouleaux Specimen Type Sample Site pH Bicarbonate Actual POC Total CO2 Base Excess O2 Saturation ABG pCO2 ABG pO2 Sarthak Test O2 Delivery Device Liter Flow Blood Gas Notified Whom Blood Gas Notified Time Sodium Potassium Chloride Carbon Dioxide Anion Gap BUN Creatinine Estim Creat Clear Calc Est GFR (MDRD) Af Amer Est GFR (MDRD) Non-Af BUN/Creatinine Ratio Glucose Hemoglobin A1c Calcium Ammonia < 10.0 L Acetone Level MRSA (PCR) Negative POC Glucose 129 H 08/23/17 08/23/17 08/23/17 00:01 03:55 03:55 WBC 6.0 RBC 2.23 L Hgb 6.9 L Hct 22.7 L MCV 101.8 H MCH 30.9 MCHC 30.4 L RDW 15.2 H RDW Differential 53.7 H Plt Count 333 MPV 9.4 Immature Gran % (Auto) Neut % (Auto) Lymph % (Auto) [place] % (Auto) Eos % (Auto) Baso % (Auto) Absolute Neuts (auto) Absolute Lymphs (auto) Total Counted Differential Comment Anisocytosis Macrocytosis Rouleaux Specimen Type Sample Site pH Bicarbonate Actual POC Total CO2 Base Excess O2 Saturation ABG pCO2 ABG pO2 Sarthak Test O2 Delivery Device Liter Flow Blood Gas Notified Whom Blood Gas Notified Time Sodium 131 L Potassium 4.6 Chloride 93 L Carbon Dioxide 24.0 Anion Gap 14 BUN 70 H Creatinine 7.76 H* Estim Creat Clear Calc 7.91 Est GFR (MDRD) Af Amer 9 L Est GFR (MDRD) Non-Af 7 L BUN/Creatinine Ratio 9.0 L Glucose 212 H Hemoglobin A1c Calcium 7.8 L Ammonia Acetone Level MRSA (PCR) POC Glucose 141 H 08/23/17 05:42 WBC RBC Hgb Hct MCV MCH MCHC RDW RDW Differential Plt Count MPV Immature Gran % (Auto) Neut % (Auto) Lymph % (Auto) [place] % (Auto) Eos % (Auto) Baso % (Auto) Absolute Neuts (auto) Absolute Lymphs (auto) Total Counted Differential Comment Anisocytosis Macrocytosis Rouleaux Specimen Type Sample Site pH Bicarbonate Actual POC Total CO2 Base Excess O2 Saturation ABG pCO2 ABG pO2 Sarthak Test O2 Delivery Device Liter Flow Blood Gas Notified Whom Blood Gas Notified Time Sodium Potassium Chloride Carbon Dioxide Anion Gap BUN Creatinine Estim Creat Clear Calc Est GFR (MDRD) Af Amer Est GFR (MDRD) Non-Af BUN/Creatinine Ratio Glucose Hemoglobin A1c Calcium Ammonia Acetone Level MRSA (PCR) POC Glucose 244 H Microbiology 08/22/17 02:36 Mucosa - Nasopharyngeal Respiratory Panel (PCR) - Final RSV B Assessment/Plan RECOMMENDATIONS 1. Wean oxygen supplementation to keep saturations greater than 89%, patient's baseline oxygen requirement is 2 L. 2. Encourage incentive spirometer/Acapella (from home) 3. Increase activity as tolerated 4. Continue aerosols and steroids as ordered 5. Discuss with renal about PD versus hemodialysis. Likely okay to slow down volume removal 6. Okay to leave the intensive care unit from my perspective 7. Follow-up in the pulmonary clinic in about 2 weeks from discharge, pulmonary function tests will need to be rescheduled IMPRESSIONS 1. Acute on chronic respiratory failure with hypoxia secondary to volume overload and RSV Patient transferred to the intensive care unit overnight secondary to hyperglycemia. This appears to be secondary to dwell fluid. Hemoglobin A1c is within normal range. Patient is much improved today compared to yesterday. Patient has had some fluid removed. Patient has also tested positive for RSV. This can lead to bronchospasm, exacerbating underlying fluid overload. Continue with steroid therapy at current doses for now. Likely decreased doses tomorrow. Patient likely hemodynamically stable to leave the intensive care unit. 2. End-stage renal disease on peritoneal dialysis Dr. Lee, nephrology has been consulted. The patient has been resistant to hemodialysis in the past. Current home dose of Lasix is 80 mg p.o. daily. Plan to see how the patient does after PD treatment today and await nephrology recommendations. Recommend discontinuation of IV morphine given his renal failure. 3. History of rheumatoid arthritis/hypertension/chronic back pain/hyperlipidemia/IBS/paroxysmal atrial fibrillation/severe pulmonary hypertension Complicates care, management, recovery, and prognosis. Patient has been maintained on Eliquis for his PAF, this should be continued. He is somewhat anemic, this should be monitored. His blood pressure was initially elevated but appears to be under control at this time. He is on IV steroids, so blood sugars should be monitored. Blood sugars have improved with decrease in dwell fluid. Code Visit Inpatient E&M: 06687 Subs Hosp L3
[2017-08-23] MEDS: Folic Acid 1 MG Tablet PO (08:37)
[2017-08-23] MEDS: Gabapentin 100 MG Capsule PO ×3 (08:37→17:12)
[2017-08-23] MEDS: Aspirin 81 MG TAB.CHEW PO (08:37)
[2017-08-23] MEDS: Calcium Acetate 667 MG Capsule 1334 MG PO ×3 (08:37→17:12)
--- NOTE | 2017-08-23 09:31 | DIALYSIS ---
[facility] tx complete. Stay safe cap applied using aseptic technique. Effluent drainage is yellow and clear. No fibrin noted. UF of 1052ml. Report was given to MARIA ELENA Pérez
--- NOTE | 2017-08-23 10:33 | RAD_ITS ---
STUDY: X-RAY CHEST REASON FOR EXAM: Male, 76 years old. Acute hypoxic respiratory failure. TECHNIQUE: Single AP portable view of the chest. COMPARISON: Comparison is made with prior examination dated August 21, 2017. FINDINGS: EKG electrodes are seen. Since prior study, there has been progressive infiltration in the left lower lobe with increasing left pleural effusion. Mild increased markings at the right lung base suggestive of atelectasis. Hyperinflation. There is mild cardiac enlargement. Normal mediastinum and dwight. Normal visualized pulmonary arteries. There is atherosclerotic calcification of the aortic arch with tortuosity. Normal visualized thoracic spine. Electrodes from a TENS unit are seen overlying the lower dorsal spine. Normal visualized ribs, clavicles, and shoulders. There is no demonstrated abnormality of the visualized soft tissue structures of the upper abdomen. RAD/Chest 1 View (Portable) IMPRESSION: Progressive left lower lobe infiltration with small left pleural effusion. Mild increased markings at the right lung base. Electronically Signed: Rod Mckinney MD at 13:34 EST Tel [phone], Service support ,
[2017-08-23] MEDS: Leflunomide 10 MG TABLET 20 MG PO (11:12)
[2017-08-23] MEDS: Ascorbic Acid 500 MG Tablet PO (11:13)
[2017-08-23] MEDS: Furosemide 80 MG Tablet PO (11:13)
[2017-08-23] MEDS: Senna/Docusate Sodium 1 Tablet 2 TABLET PO ×2 (11:14→22:43)
[2017-08-23] MEDS: Atenolol 50 MG Tablet PO (11:14)
[2017-08-23] MEDS: Pantoprazole Sodium 40 MG Tablet PO (11:17)
[2017-08-23] MEDS: Omega-3 Acid Ethyl Esters 1 GM Capsule PO ×2 (11:17→22:43)
[2017-08-23] MEDS: amLODIPine 10 MG Tablet PO (11:17)
[2017-08-23] MEDS: APIXABAN 2.5 MG TABLET PO ×2 (12:02→22:43)
[2017-08-23 12:10] LABS: Bedside Glucose 308 mg/dL (70-110)
--- NOTE | 2017-08-23 12:12 | PCM.PN.REN ---
Subjective: events noted - Physical Exam General: Alert, Oriented x3, Cooperative HEENT: Atraumatic, PERRLA, EOMI, Normocephalic Neck: Supple, No JVD, Negative Carotid Bruits Lungs: Clear to auscultation, Normal air movement Cardiovascular: Regular rate, No murmurs Abdomen: Bowel Sounds Present, Soft, Non Tender Extremities: No edema, Capillary Refill Less than 3 Seconds Skin: No rashes, No breakdown Musculoskeletal: No Tenderness to Palpation of Joints or Extremities Neurological: Cranial nerves II-XII grossly intact Psych/Mental Status: Normal Affect, Appropriate Vital Signs Temp Pulse Resp BP Pulse Ox 98.0 F 96 16 135/62 H 96 08/23/17 08:00 08/23/17 10:56 08/23/17 10:38 08/23/17 08:00 08/23/17 08:00 Oxygen Flow Rate 6 Oxygen Delivery Method Nasal Cannula Weight: 70.8 kg Body Mass Index (BMI) 22.7 Intake and Output for Last 24 Hours 08/21/17 08/22/17 08/23/17 23:59 23:59 23:59 Intake Total 1274 / 1274 390 / 390 Output Total 0 / 0 Balance 1274 / 1274 390 / 390 Microbiology Past 72 Hours 08/22/17 02:36 Respiratory Panel (PCR) - Final Mucosa - Nasopharyngeal RSV B Laboratory Tests Past 24 Hrs 08/22/17 08/22/17 08/22/17 05:45 14:12 14:12 WBC RBC Hgb Hct MCV MCH MCHC RDW RDW Differential Plt Count MPV Specimen Type Sample Site pH Bicarbonate Actual POC Total CO2 Base Excess O2 Saturation ABG pCO2 ABG pO2 Sarthak Test O2 Delivery Device Liter Flow Blood Gas Notified Whom Blood Gas Notified Time Sodium 126 L Potassium 5.4 H Chloride 92 L Carbon Dioxide 19.0 L Anion Gap 15 BUN 79 H Creatinine 8.59 H* Estim Creat Clear Calc 7.15 Est GFR (MDRD) Af Amer 8 L Est GFR (MDRD) Non-Af 7 L BUN/Creatinine Ratio 9.2 L Glucose 566 H* 584 H* Hemoglobin A1c 5.9 Calcium 7.5 L Ammonia Acetone Level MRSA (PCR) 08/22/17 08/22/17 08/22/17 14:12 14:18 19:13 WBC RBC Hgb Hct MCV MCH MCHC RDW RDW Differential Plt Count MPV Specimen Type ART ART Sample Site L Radial R Radial pH 7.21 L 7.26 L Bicarbonate Actual 19.5 L 22.5 POC Total CO2 21 24 Base Excess -8 L -5 L O2 Saturation 93 L 97 ABG pCO2 48.5 H 50.8 H ABG pO2 81 109 H Sarthak Test POS POS O2 Delivery Device Nasal Can Nasal Can Liter Flow 6.0 6.0 Blood Gas Notified Whom ICU HOSP Blood Gas Notified Time 1405 1905 Sodium Potassium Chloride Carbon Dioxide Anion Gap BUN Creatinine Estim Creat Clear Calc Est GFR (MDRD) Af Amer Est GFR (MDRD) Non-Af BUN/Creatinine Ratio Glucose Hemoglobin A1c Calcium Ammonia Acetone Level NEGATIVE MRSA (PCR) 08/22/17 08/22/17 08/23/17 19:25 20:30 03:55 WBC 6.0 RBC 2.23 L Hgb 6.9 L Hct 22.7 L MCV 101.8 H MCH 30.9 MCHC 30.4 L RDW 15.2 H RDW Differential 53.7 H Plt Count 333 MPV 9.4 Specimen Type Sample Site pH Bicarbonate Actual POC Total CO2 Base Excess O2 Saturation ABG pCO2 ABG pO2 Sarthak Test O2 Delivery Device Liter Flow Blood Gas Notified Whom Blood Gas Notified Time Sodium Potassium Chloride Carbon Dioxide Anion Gap BUN Creatinine Estim Creat Clear Calc Est GFR (MDRD) Af Amer Est GFR (MDRD) Non-Af BUN/Creatinine Ratio Glucose Hemoglobin A1c Calcium Ammonia < 10.0 L Acetone Level MRSA (PCR) Negative 08/23/17 03:55 WBC RBC Hgb Hct MCV MCH MCHC RDW RDW Differential Plt Count MPV Specimen Type Sample Site pH Bicarbonate Actual POC Total CO2 Base Excess O2 Saturation ABG pCO2 ABG pO2 Sarthak Test O2 Delivery Device Liter Flow Blood Gas Notified Whom Blood Gas Notified Time Sodium 131 L Potassium 4.6 Chloride 93 L Carbon Dioxide 24.0 Anion Gap 14 BUN 70 H Creatinine 7.76 H* Estim Creat Clear Calc 7.91 Est GFR (MDRD) Af Amer 9 L Est GFR (MDRD) Non-Af 7 L BUN/Creatinine Ratio 9.0 L Glucose 212 H Hemoglobin A1c Calcium 7.8 L Ammonia Acetone Level MRSA (PCR) POC Glucose 08/23/17 08/23/17 08/23/17 12:01 05:42 00:01 POC Glucose 308 H 244 H 141 H 08/22/17 08/22/17 08/22/17 22:16 18:58 16:21 POC Glucose 129 H 337 H 430 H 08/22/17 08/22/17 13:45 13:42 POC Glucose > 500 H* > 500 H* Assessment/Plan ESRD. Has been on PD for the last 3 months or so. Several hospitalizations recently mostly related to respiratory issues. Required HD last time related to suspected levoquin overdose. PD arranged for today. ? fluid overload. called dialysis clinic. His weight overall is not different since last discharge i.e around 145 lbs. apparently there was sudden bump in weight at home 2 days ago by 5 lbs. currently he does not have peripheral edema. breathing looks ok. will use 2.5 dextrose today for fluid removal. on review of his most recent clinic labs, he lost most of his residual renal function in last 2 weeks likely related to frequent hospitalizations Anemia. Was supposed to get LATANYA in clinic today. will dose here hyperkalemia. better Hyponatremia. better clinically much better, CXR better. continue PD for now d/w Dr Oliva
[2017-08-23 17:26] LABS: Bedside Glucose 165 mg/dL (70-110)
--- NOTE | 2017-08-23 19:01 | BH.SGPN.T2 ---
[facility] STARTED USING 2 BAGS 2.5% DEXTROSE. TOTAL VOLUME 10,000ML. 5 EXCHANGES 2000ML EACH. NO LAST FILL. ABDOMINAL DSG CHANGED. NO S/S OF INFECTION. NO DRAINAGE. EFFLUENT FLUID DRANING AND FILLING W/O PROBLEMS. VITALS STABLE. PT DENIES SOB OR ABD PAIN. REPORT TO FLOOR RN
--- NOTE | 2017-08-23 19:48 | PCM.PROGNOTE ---
Subjective: Patient seen and examined in the ICU this morning, he was alert and completely appropriate. Patient was on 3 L via nasal cannula, I discussed his care with pulmonary medicine who approved of his transfer to PCU. Patient's hemoglobin was 6.9 this morning. Nephrology continues to participate in his care, blood sugar this morning was improved. His creatinine had improved to 7.76. - Physical Exam General: Alert, Oriented x3, Cooperative, No apparent distress, Well developed, Well nourished HEENT: Atraumatic, PERRLA, EOMI, Normocephalic Oral: Moist Mucosa Neck: Supple, No JVD, Trachea Midline, Thyroid Normal Size and Texture Lungs: Clear to auscultation, No rhonchi, No wheeze, Diminished Cardiovascular: Regular rate, Regular Rhythm, Normal S1, Normal S2, No murmurs, No Ectopic Activity, PMI Normal, No rub noted, No Gallop Abdomen: Bowel Sounds Present, Soft, Non Tender, Non-Distended, No hernias noted Extremities: No clubbing, No cyanosis, No edema, Capillary Refill Less than 3 Seconds Skin: No rashes, No breakdown Musculoskeletal: No Tenderness to Palpation of Joints or Extremities Neurological: Cranial nerves II-XII grossly intact, Muscle tone normal, Sensory exam intact to light touch and pain, Coordination normal Psych/Mental Status: Normal Affect, Appropriate, Alert and oriented to time, place, person, mood and affect Vital Signs Temp Pulse Resp BP Pulse Ox 97.8 F 85 18 152/72 H 95 08/23/17 17:13 08/23/17 17:13 08/23/17 17:13 08/23/17 17:13 08/23/17 17:13 Oxygen Flow Rate 5 Oxygen Delivery Method Nasal Cannula Weight: 70.8 kg Body Mass Index (BMI) 22.7 Intake and Output for Last 24 Hours 08/21/17 08/22/17 08/23/17 23:59 23:59 23:59 Intake Total 1274 / 1274 710 / 710 Output Total 0 / 0 Balance 1274 / 1274 710 / 710 Microbiology Past 72 Hours 08/22/17 02:36 Respiratory Panel (PCR) - Final Mucosa - Nasopharyngeal RSV B Laboratory Tests Past 24 Hrs 08/22/17 08/22/17 08/23/17 19:25 20:30 03:55 WBC 6.0 RBC 2.23 L Hgb 6.9 L Hct 22.7 L MCV 101.8 H MCH 30.9 MCHC 30.4 L RDW 15.2 H RDW Differential 53.7 H Plt Count 333 MPV 9.4 Sodium Potassium Chloride Carbon Dioxide Anion Gap BUN Creatinine Estim Creat Clear Calc Est GFR (MDRD) Af Amer Est GFR (MDRD) Non-Af BUN/Creatinine Ratio Glucose Calcium Ammonia < 10.0 L MRSA (PCR) Negative 08/23/17 03:55 WBC RBC Hgb Hct MCV MCH MCHC RDW RDW Differential Plt Count MPV Sodium 131 L Potassium 4.6 Chloride 93 L Carbon Dioxide 24.0 Anion Gap 14 BUN 70 H Creatinine 7.76 H* Estim Creat Clear Calc 7.91 Est GFR (MDRD) Af Amer 9 L Est GFR (MDRD) Non-Af 7 L BUN/Creatinine Ratio 9.0 L Glucose 212 H Calcium 7.8 L Ammonia MRSA (PCR) POC Glucose 08/23/17 08/23/17 08/23/17 17:07 12:01 05:42 POC Glucose 165 H 308 H 244 H 08/23/17 08/22/17 00:01 22:16 POC Glucose 141 H 129 H Assessment/Plan #1 acute on chronic respiratory failure with hypoxia secondary to volume overload, acute on chronic diastolic congestive heart failure, and an overlay of respiratory syncytial virus infection if and patient will be transferred to PCU today, pulmonary medicine is following #2 acute respiratory syncytial virus infection/bronchitis #3 end-stage renal disease on peritoneal dialysis #4 paroxysmal atrial fibrillation #5 pulmonary hypertension #6 diastolic congestive heart failure-acute on chronic #7 hypertension #8 anemia of chronic renal disease #9 hyperkalemia Code Visit Inpatient E&M: 36989 Subs Hosp L2
[2017-08-23] MEDS: Atorvastatin Calcium 20 MG Tablet PO (22:44)
[2017-08-23 22:56] LABS: Bedside Glucose 289 mg/dL (70-110)
[2017-08-24] VITALS (10 sets, daily range): BP systolic 141–155; BP diastolic 48–74; PULSE 79–99; RESP 16–20; TEMP 36.2–36.6; O2SAT 96–100
[2017-08-24] MEDS: Ipratropium/Albuterol Sulfate 3 ML AMPUL.NEB INHALATION ×5 (01:01→14:57)
[2017-08-24 03:36] LABS: Bedside Glucose 372 mg/dL (70-110)
[2017-08-24 06:55] LABS: Bedside Glucose 149 mg/dL (70-110)
[2017-08-24 09:00] LABS: Hematocrit 25.4 % (40-54); Hemoglobin 7.7 g/dl (13.0-16.5)
[2017-08-24] MEDS: Folic Acid 1 MG Tablet PO (09:31)
[2017-08-24] MEDS: Gabapentin 100 MG Capsule PO ×2 (09:31→12:11)
[2017-08-24] MEDS: Aspirin 81 MG TAB.CHEW PO (09:31)
[2017-08-24] MEDS: Calcium Acetate 667 MG Capsule 1334 MG PO ×2 (09:31→12:11)
[2017-08-24] MEDS: Leflunomide 10 MG TABLET 20 MG PO (09:32)
[2017-08-24] MEDS: APIXABAN 2.5 MG TABLET PO (09:32)
[2017-08-24] MEDS: Furosemide 80 MG Tablet PO (09:32)
[2017-08-24] MEDS: Ascorbic Acid 500 MG Tablet PO (09:33)
[2017-08-24] MEDS: Senna/Docusate Sodium 1 Tablet 2 TABLET PO (09:33)
[2017-08-24] MEDS: Pantoprazole Sodium 40 MG Tablet PO (09:33)
[2017-08-24] MEDS: Atenolol 50 MG Tablet PO (09:33)
[2017-08-24] MEDS: guaiFENesin 1,200 MG Tablet 1200 MG PO (09:33)
[2017-08-24] MEDS: Omega-3 Acid Ethyl Esters 1 GM Capsule PO (09:33)
[2017-08-24] MEDS: amLODIPine 10 MG Tablet PO (09:33)
[2017-08-24 09:51] LABS: Anion Gap 14 (5-15); BUN 79 mg/dL (7-18); BUN/Creat Ratio 10.4 RATIO (10-20); Calcium,Total 7.7 mg/dL (8.5-10.1); Chloride 95 mmol/L (98-107); Creatinine, Serum 7.58 mg/dL (0.70-1.30); EST Glomerular Filtration Rate 8 mL/min (>60); Est Glom Filt Rate - Afr Amer 9 mL/min (>60); Estimated Creatinine Clearance 8.15 ml/min; Glucose 116 mg/dL (70-110); Potassium 4.7 mmol/L (3.5-5.1); Sodium Level 133 mmol/L (136-145)
--- NOTE | 2017-08-24 10:00 | DIALYSIS ---
[facility] tx complete. Stay safe cap applied using aseptic technique. Effluent drainage is yellow and clear. No fibrin noted. UF of 1092ml. Report was given to MARIA ELENA Oliver.
--- NOTE | 2017-08-24 11:34 | CASEMGMT ---
This RN CM f/u with pt regarding diabetes testing supplies and physician following DM. Per pt, she has supplies and states no concerns and pt states she would like her PCP to continue to follow her DM at this time. Pt states no other concerns at this time and states ready for discharge. SStricardo ARREDONDO CM
[2017-08-24 12:20] LABS: Bedside Glucose 244 mg/dL (70-110)
--- NOTE | 2017-08-24 12:48 | PCM.PN.INT ---
Subjective: Patient transferred out of the intensive care unit yesterday. Patient continues to feel improved compared to previous. Patient states he is currently his baseline nasal cannula oxygen. Patient still having some dyspnea on exertion, but states he has not been using his oxygen walk to the bathroom. Patient continues to have cough, but does not feel confused. General: Alert, Oriented x3, Cooperative, No apparent distress, - - Speaking in full sentences. HEENT: Atraumatic, PERRLA, EOMI, Normocephalic, - - No scleral icterus or injection noted. Oral: Moist Mucosa, No Gingival or Mucosal Lesions/ Ulcerations Neck: Supple, No JVD, No Nodes, Trachea Midline Lungs: No rhonchi, No rales, Diminished, Wheezes - Sporadic, - - Symmetric expansion. No dullness to percussion. Cardiovascular: Regular rate, Regular Rhythm, Normal S1, Normal S2, Murmur, No rub noted, No Gallop Abdomen: Bowel Sounds Present, Soft, Non Tender, Distended Extremities: No cyanosis, No edema, Capillary Refill Less than 3 Seconds, Clubbing Skin: - - No change compared to previous Musculoskeletal: No Tenderness to Palpation of Joints or Extremities Lymphatic: No Cervical, Supraclavicular, or Inguinal Adenopathy Neurological: Cranial nerves II-XII grossly intact, Neuro grossly intact, Motor Exam 5/5 strength throughout Psych/Mental Status: Alert and oriented to time, place, person, mood and affect Vital Signs Temp Pulse Resp BP Pulse Ox 36.6 C 79 18 145/74 H 97 08/24/17 09:15 08/24/17 09:15 08/24/17 09:15 08/24/17 09:15 08/24/17 09:15 Oxygen Flow Rate 4 Oxygen Delivery Method Nasal Cannula Weight: 70.8 kg Body Mass Index (BMI) 22.7 Intake and Output for Last 24 Hours 08/22/17 08/23/17 08/24/17 23:59 23:59 23:59 Intake Total 1274 / 1274 710 / 710 360 / 360 Output Total 0 / 0 0 / 0 Balance 1274 / 1274 710 / 710 360 / 360 Labs (Last 48 Hours) 08/22/17 08/22/17 08/22/17 05:45 13:42 13:45 WBC RBC Hgb Hct MCV MCH MCHC RDW RDW Differential Plt Count MPV Specimen Type Sample Site pH Bicarbonate Actual POC Total CO2 Base Excess O2 Saturation ABG pCO2 ABG pO2 Sarthak Test O2 Delivery Device Liter Flow Blood Gas Notified Whom Blood Gas Notified Time Sodium Potassium Chloride Carbon Dioxide Anion Gap BUN Creatinine Estim Creat Clear Calc Est GFR (MDRD) Af Amer Est GFR (MDRD) Non-Af BUN/Creatinine Ratio Glucose Hemoglobin A1c 5.9 Calcium Ammonia Acetone Level MRSA (PCR) POC Glucose > 500 H* > 500 H* 08/22/17 08/22/17 08/22/17 14:12 14:12 14:12 WBC RBC Hgb Hct MCV MCH MCHC RDW RDW Differential Plt Count MPV Specimen Type Sample Site pH Bicarbonate Actual POC Total CO2 Base Excess O2 Saturation ABG pCO2 ABG pO2 Sarthak Test O2 Delivery Device Liter Flow Blood Gas Notified Whom Blood Gas Notified Time Sodium 126 L Potassium 5.4 H Chloride 92 L Carbon Dioxide 19.0 L Anion Gap 15 BUN 79 H Creatinine 8.59 H* Estim Creat Clear Calc 7.15 Est GFR (MDRD) Af Amer 8 L Est GFR (MDRD) Non-Af 7 L BUN/Creatinine Ratio 9.2 L Glucose 566 H* 584 H* Hemoglobin A1c Calcium 7.5 L Ammonia Acetone Level NEGATIVE MRSA (PCR) POC Glucose 08/22/17 08/22/17 08/22/17 14:18 16:21 18:58 WBC RBC Hgb Hct MCV MCH MCHC RDW RDW Differential Plt Count MPV Specimen Type ART Sample Site L Radial pH 7.21 L Bicarbonate Actual 19.5 L POC Total CO2 21 Base Excess -8 L O2 Saturation 93 L ABG pCO2 48.5 H ABG pO2 81 Sarthak Test POS O2 Delivery Device Nasal Can Liter Flow 6.0 Blood Gas Notified Whom ICU MD Blood Gas Notified Time 1405 Sodium Potassium Chloride Carbon Dioxide Anion Gap BUN Creatinine Estim Creat Clear Calc Est GFR (MDRD) Af Amer Est GFR (MDRD) Non-Af BUN/Creatinine Ratio Glucose Hemoglobin A1c Calcium Ammonia Acetone Level MRSA (PCR) POC Glucose 430 H 337 H 08/22/17 08/22/17 08/22/17 19:13 19:25 20:30 WBC RBC Hgb Hct MCV MCH MCHC RDW RDW Differential Plt Count MPV Specimen Type ART Sample Site R Radial pH 7.26 L Bicarbonate Actual 22.5 POC Total CO2 24 Base Excess -5 L O2 Saturation 97 ABG pCO2 50.8 H ABG pO2 109 H Sarthak Test POS O2 Delivery Device Nasal Can Liter Flow 6.0 Blood Gas Notified Whom [facility] Blood Gas Notified Time 190 Sodium Potassium Chloride Carbon Dioxide Anion Gap BUN Creatinine Estim Creat Clear Calc Est GFR (MDRD) Af Amer Est GFR (MDRD) Non-Af BUN/Creatinine Ratio Glucose Hemoglobin A1c Calcium Ammonia < 10.0 L Acetone Level MRSA (PCR) Negative POC Glucose 08/22/17 08/23/17 08/23/17 22:16 00:01 03:55 WBC 6.0 RBC 2.23 L Hgb 6.9 L Hct 22.7 L MCV 101.8 H MCH 30.9 MCHC 30.4 L RDW 15.2 H RDW Differential 53.7 H Plt Count 333 MPV 9.4 Specimen Type Sample Site pH Bicarbonate Actual POC Total CO2 Base Excess O2 Saturation ABG pCO2 ABG pO2 Sarthak Test O2 Delivery Device Liter Flow Blood Gas Notified Whom Blood Gas Notified Time Sodium Potassium Chloride Carbon Dioxide Anion Gap BUN Creatinine Estim Creat Clear Calc Est GFR (MDRD) Af Amer Est GFR (MDRD) Non-Af BUN/Creatinine Ratio Glucose Hemoglobin A1c Calcium Ammonia Acetone Level MRSA (PCR) POC Glucose 129 H 141 H 08/23/17 08/23/17 08/23/17 03:55 05:42 12:01 WBC RBC Hgb Hct MCV MCH MCHC RDW RDW Differential Plt Count MPV Specimen Type Sample Site pH Bicarbonate Actual POC Total CO2 Base Excess O2 Saturation ABG pCO2 ABG pO2 Sarthak Test O2 Delivery Device Liter Flow Blood Gas Notified Whom Blood Gas Notified Time Sodium 131 L Potassium 4.6 Chloride 93 L Carbon Dioxide 24.0 Anion Gap 14 BUN 70 H Creatinine 7.76 H* Estim Creat Clear Calc 7.91 Est GFR (MDRD) Af Amer 9 L Est GFR (MDRD) Non-Af 7 L BUN/Creatinine Ratio 9.0 L Glucose 212 H Hemoglobin A1c Calcium 7.8 L Ammonia Acetone Level MRSA (PCR) POC Glucose 244 H 308 H 08/23/17 08/23/17 08/24/17 17:07 22:25 03:16 WBC RBC Hgb Hct MCV MCH MCHC RDW RDW Differential Plt Count MPV Specimen Type Sample Site pH Bicarbonate Actual POC Total CO2 Base Excess O2 Saturation ABG pCO2 ABG pO2 Sarthak Test O2 Delivery Device Liter Flow Blood Gas Notified Whom Blood Gas Notified Time Sodium Potassium Chloride Carbon Dioxide Anion Gap BUN Creatinine Estim Creat Clear Calc Est GFR (MDRD) Af Amer Est GFR (MDRD) Non-Af BUN/Creatinine Ratio Glucose Hemoglobin A1c Calcium Ammonia Acetone Level MRSA (PCR) POC Glucose 165 H 289 H 372 H 08/24/17 08/24/17 08/24/17 06:50 08:30 08:30 WBC RBC Hgb 7.7 L Hct 25.4 L MCV MCH MCHC RDW RDW Differential Plt Count MPV Specimen Type Sample Site pH Bicarbonate Actual POC Total CO2 Base Excess O2 Saturation ABG pCO2 ABG pO2 Sarthak Test O2 Delivery Device Liter Flow Blood Gas Notified Whom Blood Gas Notified Time Sodium 133 L Potassium 4.7 Chloride 95 L Carbon Dioxide 24.0 Anion Gap 14 BUN 79 H Creatinine 7.58 H* Estim Creat Clear Calc 8.15 Est GFR (MDRD) Af Amer 9 L Est GFR (MDRD) Non-Af 8 L BUN/Creatinine Ratio 10.4 Glucose 116 H Hemoglobin A1c Calcium 7.7 L Ammonia Acetone Level MRSA (PCR) POC Glucose 149 H 08/24/17 12:07 WBC RBC Hgb Hct MCV MCH MCHC RDW RDW Differential Plt Count MPV Specimen Type Sample Site pH Bicarbonate Actual POC Total CO2 Base Excess O2 Saturation ABG pCO2 ABG pO2 Sarthak Test O2 Delivery Device Liter Flow Blood Gas Notified Whom Blood Gas Notified Time Sodium Potassium Chloride Carbon Dioxide Anion Gap BUN Creatinine Estim Creat Clear Calc Est GFR (MDRD) Af Amer Est GFR (MDRD) Non-Af BUN/Creatinine Ratio Glucose Hemoglobin A1c Calcium Ammonia Acetone Level MRSA (PCR) POC Glucose 244 H Microbiology 08/22/17 02:36 Mucosa - Nasopharyngeal Respiratory Panel (PCR) - Final RSV B Clinical Impression(s) from Imaging Studies Chest X-Ray 08/23/17 10:33 IMPRESSION: Progressive left lower lobe infiltration with small left pleural effusion. Mild increased markings at the right lung base. Electronically Signed: Rod Mckinney MD at 13:34 EST Tel [phone], Service support , Assessment/Plan RECOMMENDATIONS 1. Wean oxygen supplementation to keep saturations greater than 89%, patient's baseline oxygen requirement is 2 L. 2. Encourage incentive spirometer/Acapella (from home) 3. Increase activity as tolerated 4. Continue aerosols and transition to p.o. steroids and wean over the next 12-14 days 5. Continue PD 6. Follow-up in the pulmonary clinic in about 2 weeks from discharge, pulmonary function tests will need to be rescheduled until after reevaluation 7. Okay to discharge from a pulmonary perspective IMPRESSIONS 1. Acute on chronic respiratory failure with hypoxia secondary to volume overload and RSV Patient is much improved compared to previous. Patient does have multifactorial hypoxic respiratory failure from RSV and volume overload. Patient's volume status appears to much improved compared to previous. Patient is on supplemental oxygen, but saturations have been maintained. Stressed to the patient the importance of keeping saturations above 90% at all times. Patient was given signs and symptoms of decompensation and instructed to call. Patient can be transitioned to prednisone therapy and weaned over the next 12-14 days. Patient should follow-up in our office with nurse practitioner in 2 weeks. 2. End-stage renal disease on peritoneal dialysis Dr. Lee, nephrology has been consulted. The patient has been resistant to hemodialysis in the past. Current home dose of Lasix is 80 mg p.o. daily. Patient is having changes to his PD therapy per the . Defer to renal. 3. History of rheumatoid arthritis/hypertension/chronic back pain/hyperlipidemia/IBS/paroxysmal atrial fibrillation/severe pulmonary hypertension Complicates care, management, recovery, and prognosis. Patient has been maintained on Eliquis for his PAF, this should be continued. He is somewhat anemic, this should be monitored. Blood sugars will likely be okay once prednisone is discontinued in 12-14 days. Code Visit Inpatient E&M: 29800 Subs Hosp L2
--- NOTE | 2017-08-24 12:53 | PN_ITS ---
Subjective: Patient transferred out of the intensive care unit yesterday. Patient continues to feel improved compared to previous. Patient states he is currently his baseline nasal cannula oxygen. Patient still having some dyspnea on exertion, but states he has not been using his oxygen walk to the bathroom. Patient continues to have cough, but does not feel confused. General: Alert, Oriented x3, Cooperative, No apparent distress, - - Speaking in full sentences. HEENT: Atraumatic, PERRLA, EOMI, Normocephalic, - - No scleral icterus or injection noted. Oral: Moist Mucosa, No Gingival or Mucosal Lesions/ Ulcerations Neck: Supple, No JVD, No Nodes, Trachea Midline Lungs: No rhonchi, No rales, Diminished, Wheezes - Sporadic, - - Symmetric expansion. No dullness to percussion. Cardiovascular: Regular rate, Regular Rhythm, Normal S1, Normal S2, Murmur, No rub noted, No Gallop Abdomen: Bowel Sounds Present, Soft, Non Tender, Distended Extremities: No cyanosis, No edema, Capillary Refill Less than 3 Seconds, Clubbing Skin: - - No change compared to previous Musculoskeletal: No Tenderness to Palpation of Joints or Extremities Lymphatic: No Cervical, Supraclavicular, or Inguinal Adenopathy Neurological: Cranial nerves II-XII grossly intact, Neuro grossly intact, Motor Exam 5/5 strength throughout Psych/Mental Status: Alert and oriented to time, place, person, mood and affect Vital Signs Temp Pulse Resp BP Pulse Ox 36.6 C 79 18 145/74 H 97 08/24/17 09:15 08/24/17 09:15 08/24/17 09:15 08/24/17 09:15 08/24/17 09:15 Oxygen Flow Rate 4 Oxygen Delivery Method Nasal Cannula Weight: 70.8 kg Body Mass Index (BMI) 22.7 Intake and Output for Last 24 Hours 08/22/17 08/23/17 08/24/17 23:59 23:59 23:59 Intake Total 1274 / 1274 710 / 710 360 / 360 Output Total 0 / 0 0 / 0 Balance 1274 / 1274 710 / 710 360 / 360 Labs (Last 48 Hours) 08/22/17 08/22/17 08/22/17 05:45 13:42 13:45 WBC RBC Hgb Hct MCV MCH MCHC RDW RDW Differential Plt Count MPV Specimen Type Sample Site pH Bicarbonate Actual POC Total CO2 Base Excess O2 Saturation ABG pCO2 ABG pO2 Sarthak Test O2 Delivery Device Liter Flow Blood Gas Notified Whom Blood Gas Notified Time Sodium Potassium Chloride Carbon Dioxide Anion Gap BUN Creatinine Estim Creat Clear Calc Est GFR (MDRD) Af Amer Est GFR (MDRD) Non-Af BUN/Creatinine Ratio Glucose Hemoglobin A1c 5.9 Calcium Ammonia Acetone Level MRSA (PCR) POC Glucose > 500 H* > 500 H* 08/22/17 08/22/17 08/22/17 14:12 14:12 14:12 WBC RBC Hgb Hct MCV MCH MCHC RDW RDW Differential Plt Count MPV Specimen Type Sample Site pH Bicarbonate Actual POC Total CO2 Base Excess O2 Saturation ABG pCO2 ABG pO2 Sarthak Test O2 Delivery Device Liter Flow Blood Gas Notified Whom Blood Gas Notified Time Sodium 126 L Potassium 5.4 H Chloride 92 L Carbon Dioxide 19.0 L Anion Gap 15 BUN 79 H Creatinine 8.59 H* Estim Creat Clear Calc 7.15 Est GFR (MDRD) Af Amer 8 L Est GFR (MDRD) Non-Af 7 L BUN/Creatinine Ratio 9.2 L Glucose 566 H* 584 H* Hemoglobin A1c Calcium 7.5 L Ammonia Acetone Level NEGATIVE MRSA (PCR) POC Glucose 08/22/17 08/22/17 08/22/17 14:18 16:21 18:58 WBC RBC Hgb Hct MCV MCH MCHC RDW RDW Differential Plt Count MPV Specimen Type ART Sample Site L Radial pH 7.21 L Bicarbonate Actual 19.5 L POC Total CO2 21 Base Excess -8 L O2 Saturation 93 L ABG pCO2 48.5 H ABG pO2 81 Sarthak Test POS O2 Delivery Device Nasal Can Liter Flow 6.0 Blood Gas Notified Whom ICU MD Blood Gas Notified Time 1405 Sodium Potassium Chloride Carbon Dioxide Anion Gap BUN Creatinine Estim Creat Clear Calc Est GFR (MDRD) Af Amer Est GFR (MDRD) Non-Af BUN/Creatinine Ratio Glucose Hemoglobin A1c Calcium Ammonia Acetone Level MRSA (PCR) POC Glucose 430 H 337 H 08/22/17 08/22/17 08/22/17 19:13 19:25 20:30 WBC RBC Hgb Hct MCV MCH MCHC RDW RDW Differential Plt Count MPV Specimen Type ART Sample Site R Radial pH 7.26 L Bicarbonate Actual 22.5 POC Total CO2 24 Base Excess -5 L O2 Saturation 97 ABG pCO2 50.8 H ABG pO2 109 H Sarthak Test POS O2 Delivery Device Nasal Can Liter Flow 6.0 Blood Gas Notified Whom [facility] Blood Gas Notified Time 190 Sodium Potassium Chloride Carbon Dioxide Anion Gap BUN Creatinine Estim Creat Clear Calc Est GFR (MDRD) Af Amer Est GFR (MDRD) Non-Af BUN/Creatinine Ratio Glucose Hemoglobin A1c Calcium Ammonia < 10.0 L Acetone Level MRSA (PCR) Negative POC Glucose 08/22/17 08/23/17 08/23/17 22:16 00:01 03:55 WBC 6.0 RBC 2.23 L Hgb 6.9 L Hct 22.7 L MCV 101.8 H MCH 30.9 MCHC 30.4 L RDW 15.2 H RDW Differential 53.7 H Plt Count 333 MPV 9.4 Specimen Type Sample Site pH Bicarbonate Actual POC Total CO2 Base Excess O2 Saturation ABG pCO2 ABG pO2 Sarthak Test O2 Delivery Device Liter Flow Blood Gas Notified Whom Blood Gas Notified Time Sodium Potassium Chloride Carbon Dioxide Anion Gap BUN Creatinine Estim Creat Clear Calc Est GFR (MDRD) Af Amer Est GFR (MDRD) Non-Af BUN/Creatinine Ratio Glucose Hemoglobin A1c Calcium Ammonia Acetone Level MRSA (PCR) POC Glucose 129 H 141 H 08/23/17 08/23/17 08/23/17 03:55 05:42 12:01 WBC RBC Hgb Hct MCV MCH MCHC RDW RDW Differential Plt Count MPV Specimen Type Sample Site pH Bicarbonate Actual POC Total CO2 Base Excess O2 Saturation ABG pCO2 ABG pO2 Sarthak Test O2 Delivery Device Liter Flow Blood Gas Notified Whom Blood Gas Notified Time Sodium 131 L Potassium 4.6 Chloride 93 L Carbon Dioxide 24.0 Anion Gap 14 BUN 70 H Creatinine 7.76 H* Estim Creat Clear Calc 7.91 Est GFR (MDRD) Af Amer 9 L Est GFR (MDRD) Non-Af 7 L BUN/Creatinine Ratio 9.0 L Glucose 212 H Hemoglobin A1c Calcium 7.8 L Ammonia Acetone Level MRSA (PCR) POC Glucose 244 H 308 H 08/23/17 08/23/17 08/24/17 17:07 22:25 03:16 WBC RBC Hgb Hct MCV MCH MCHC RDW RDW Differential Plt Count MPV Specimen Type Sample Site pH Bicarbonate Actual POC Total CO2 Base Excess O2 Saturation ABG pCO2 ABG pO2 Sarthak Test O2 Delivery Device Liter Flow Blood Gas Notified Whom Blood Gas Notified Time Sodium Potassium Chloride Carbon Dioxide Anion Gap BUN Creatinine Estim Creat Clear Calc Est GFR (MDRD) Af Amer Est GFR (MDRD) Non-Af BUN/Creatinine Ratio Glucose Hemoglobin A1c Calcium Ammonia Acetone Level MRSA (PCR) POC Glucose 165 H 289 H 372 H 08/24/17 08/24/17 08/24/17 06:50 08:30 08:30 WBC RBC Hgb 7.7 L Hct 25.4 L MCV MCH MCHC RDW RDW Differential Plt Count MPV Specimen Type Sample Site pH Bicarbonate Actual POC Total CO2 Base Excess O2 Saturation ABG pCO2 ABG pO2 Sarthak Test O2 Delivery Device Liter Flow Blood Gas Notified Whom Blood Gas Notified Time Sodium 133 L Potassium 4.7 Chloride 95 L Carbon Dioxide 24.0 Anion Gap 14 BUN 79 H Creatinine 7.58 H* Estim Creat Clear Calc 8.15 Est GFR (MDRD) Af Amer 9 L Est GFR (MDRD) Non-Af 8 L BUN/Creatinine Ratio 10.4 Glucose 116 H Hemoglobin A1c Calcium 7.7 L Ammonia Acetone Level MRSA (PCR) POC Glucose 149 H 08/24/17 12:07 WBC RBC Hgb Hct MCV MCH MCHC RDW RDW Differential Plt Count MPV Specimen Type Sample Site pH Bicarbonate Actual POC Total CO2 Base Excess O2 Saturation ABG pCO2 ABG pO2 Sarthak Test O2 Delivery Device Liter Flow Blood Gas Notified Whom Blood Gas Notified Time Sodium Potassium Chloride Carbon Dioxide Anion Gap BUN Creatinine Estim Creat Clear Calc Est GFR (MDRD) Af Amer Est GFR (MDRD) Non-Af BUN/Creatinine Ratio Glucose Hemoglobin A1c Calcium Ammonia Acetone Level MRSA (PCR) POC Glucose 244 H Microbiology 08/22/17 02:36 Mucosa - Nasopharyngeal Respiratory Panel (PCR) - Final RSV B Clinical Impression(s) from Imaging Studies Chest X-Ray 08/23/17 10:33 IMPRESSION: Progressive left lower lobe infiltration with small left pleural effusion. Mild increased markings at the right lung base. Electronically Signed: Rod Mckinney MD at 13:34 EST Tel [phone], Service support , Assessment/Plan RECOMMENDATIONS 1. Wean oxygen supplementation to keep saturations greater than 89%, patient 's baseline oxygen requirement is 2 L. 2. Encourage incentive spirometer/Acapella (from home) 3. Increase activity as tolerated 4. Continue aerosols and transition to p.o. steroids and wean over the next 12-14 days 5. Continue PD 6. Follow-up in the pulmonary clinic in about 2 weeks from discharge, pulmonary function tests will need to be rescheduled until after reevaluation 7. Okay to discharge from a pulmonary perspective IMPRESSIONS 1. Acute on chronic respiratory failure with hypoxia secondary to volume overload and RSV Patient is much improved compared to previous. Patient does have multifactorial hypoxic respiratory failure from RSV and volume overload. Patient's volume status appears to much improved compared to previous. Patient is on supplemental oxygen, but saturations have been maintained. Stressed to the patient the importance of keeping saturations above 90% at all times. Patient was given signs and symptoms of decompensation and instructed to call. Patient can be transitioned to prednisone therapy and weaned over the next 12- 14 days. Patient should follow-up in our office with nurse practitioner in 2 weeks. 2. End-stage renal disease on peritoneal dialysis Dr. Lee, nephrology has been consulted. The patient has been resistant to hemodialysis in the past. Current home dose of Lasix is 80 mg p.o. daily. Patient is having changes to his PD therapy per the . Defer to renal. 3. History of rheumatoid arthritis/hypertension/chronic back pain/ hyperlipidemia/IBS/paroxysmal atrial fibrillation/severe pulmonary hypertension Complicates care, management, recovery, and prognosis. Patient has been maintained on Eliquis for his PAF, this should be continued. He is somewhat anemic, this should be monitored. Blood sugars will likely be okay once prednisone is discontinued in 12-14 days. Code Visit Inpatient E&M: 91086 Subs Hosp L2
--- NOTE | 2017-08-24 14:49 | PCM.PN.REN ---
Subjective: no new complaints - Physical Exam General: Alert, Oriented x3, Cooperative HEENT: Atraumatic, PERRLA, EOMI, Normocephalic Neck: Supple, No JVD, Negative Carotid Bruits Lungs: Clear to auscultation, Normal air movement Cardiovascular: Regular rate, No murmurs Abdomen: Bowel Sounds Present, Soft, Non Tender Extremities: No edema, Capillary Refill Less than 3 Seconds Skin: No rashes, No breakdown Musculoskeletal: No Tenderness to Palpation of Joints or Extremities Neurological: Cranial nerves II-XII grossly intact Psych/Mental Status: Normal Affect, Appropriate Vital Signs Temp Pulse Resp BP Pulse Ox 97.8 F 79 18 145/74 H 97 08/24/17 09:15 08/24/17 09:15 08/24/17 09:15 08/24/17 09:15 08/24/17 09:15 Oxygen Flow Rate 4 Oxygen Delivery Method Nasal Cannula Weight: 70.8 kg Body Mass Index (BMI) 22.7 Intake and Output for Last 24 Hours 08/22/17 08/23/17 08/24/17 23:59 23:59 23:59 Intake Total 1274 / 1274 710 / 710 360 / 360 Output Total 0 / 0 0 / 0 Balance 1274 / 1274 710 / 710 360 / 360 Microbiology Past 72 Hours 08/22/17 02:36 Respiratory Panel (PCR) - Final Mucosa - Nasopharyngeal RSV B Laboratory Tests Past 24 Hrs 08/24/17 08/24/17 08:30 08:30 Hgb 7.7 L Hct 25.4 L Sodium 133 L Potassium 4.7 Chloride 95 L Carbon Dioxide 24.0 Anion Gap 14 BUN 79 H Creatinine 7.58 H* Estim Creat Clear Calc 8.15 Est GFR (MDRD) Af Amer 9 L Est GFR (MDRD) Non-Af 8 L BUN/Creatinine Ratio 10.4 Glucose 116 H Calcium 7.7 L POC Glucose 08/24/17 08/24/17 08/24/17 12:07 06:50 03:16 POC Glucose 244 H 149 H 372 H 08/23/17 08/23/17 22:25 17:07 POC Glucose 289 H 165 H Assessment/Plan ESRD. RSV infection Clinically better, breathing is back to baseline Discussed with patient and in detail. They would like to do a trial off hemodialysis in center. Will follow with Dr Juarez d/w Dr Oliva
--- NOTE | 2017-08-24 16:15 | PCM.DC ---
- Discharge Diagnoses Current Active Problems: Current Active and Chronic Problems (Last Updated 08/16/17 @ 15:08 by Francheska Mahoney) PAF (paroxysmal atrial fibrillation) (Chronic) You will use the following diet at home:: No restrictions Your food should be the consistency of: Regular Your liquids should be the consistency of: Regular/Thin Discharge Activity: Return to Normal Activity Weight Bearing Status: Full weight bearing Allergies/Adverse Reactions: Allergies Penicillins Allergy (Verified 08/21/17 21:07) Hives levofloxacin [From Levaquin] Adverse Reaction (Severe, Verified 08/21/17 21:07) Other fluid in lungs Medications to take at Discharge Amlodipine [Norvasc] 10 mg PO DAILY 12/19/13 Aspirin [Aspirin, Baby] 81 mg PO DAILY@0800 12/19/13 Atorvastatin Calcium [Lipitor] 20 mg PO QHS 12/19/13 Leflunomide [Arava] 20 mg PO DAILY 12/19/13 [place]-3 Fatty Acids/Fish Oil [[place] 3 1,000 mg Softgel] 1 ea PO BID 12/19/13 Albuterol Inhaler [Ventolin Hfa] 2 puff INHALATION Q4H PRN PRN 07/31/17 Folic Acid 1 mg PO DAILY@0800 07/31/17 Ipratropium/Albuterol Sulfate [Duoneb] 3 ml INHALATION TID PRN PRN 07/31/17 Lactobacillus Rhamnosus GG [Culturelle] 2 ea PO TID 07/31/17 Sennosides/Docusate Sodium [Senna-Docusate Sodium Tablet] 2 ea PO BID 07/31/17 Amino AC/Protein Hydr/Whey Pro [Liquacel Liquid Protein] 2 cap PO DAILY 08/04/17 Gabapentin [Neurontin] 100 mg PO TIDCM #90 cap 08/07/17 melatonin 2.5 mg chewable tablet 2.5 mg PO HS PRN 08/09/17 ascorbic acid (vitamin C) 500 mg capsule 500 mg PO DAILY 08/16/17 guaifenesin ER 1,200 mg tablet, extended release 12 hr 1,200 mg PO Q12H 08/16/17 liqua-michel 2 cap PO DAILY 08/16/17 polyethylene glycol 3350 17 gram/dose oral powder 17 g PO QDAY PRN 08/16/17 Calcium Acetate [Phoslo Gel Cap] 1,334 mg PO TIDCM 08/21/17 Furosemide [Lasix] 80 mg PO DAILY 08/21/17 Oxycodone HCl/Acetaminophen [Percocet 5-325] 0.5 tab PO Q4H PRN 08/21/17 apixaban 2.5 mg tablet 2.5 mg PO BID #180 tab 08/22/17 atenolol 50 mg tablet 50 mg PO DAILY #90 tab 08/22/17 ipratropium-albuterol 0.5 mg-3 mg(2.5 mg base)/3 mL nebulization soln 3 ml INHALATION TID PRN #180 ml 08/22/17 pantoprazole 40 mg tablet,delayed release 40 mg PO QAM #90 tab 08/22/17 Apixaban [Eliquis] 2.5 mg PO BID tablet 08/24/17 Ascorbic Acid [Vitamin C] 500 mg PO DAILY tablet 08/24/17 Aspirin [Aspirin, Baby] 81 mg PO DAILY@0800 tab.chew 08/24/17 Atenolol [Tenormin (beta victoriano)] 50 mg PO DAILY tablet 08/24/17 Atorvastatin Calcium [Lipitor] 20 mg PO QHS tablet 08/24/17 Calcium Acetate [Phoslo Gel Cap] 1,334 mg PO TIDCM capsule 08/24/17 Folic Acid 1 mg PO DAILY@0800 tablet 08/24/17 Furosemide [Lasix] 80 mg PO DAILY tablet 08/24/17 Gabapentin [Neurontin] 100 mg PO TIDCM capsule 08/24/17 Guaifenesin [Mucinex] 1,200 mg PO Q12 tablet 08/24/17 Lactobacillus Acidophilus [Acidophilus] 2 tablet PO TID tablet 08/24/17 Leflunomide 20 mg PO DAILY tablet 08/24/17 Melatonin 2.5 mg PO QHS PRN tablet 08/24/17 [place]-3 Acid Ethyl Esters [Lovaza] 1 gm PO BID capsule 08/24/17 Pantoprazole Sodium [Protonix] 40 mg PO QAM tablet 08/24/17 Prednisone 10 mg PO UD #30 tab 08/24/17 The following prescriptions were given: Prednisone 10 mg PO UD #30 tab Primary Care Physician: Arvnid Vallecillo MD [Primary Care Provider] - Please follow up with your Primary Care Physician in: in 2 weeks Please Follow Up With: Derrek Lee MD When: as directed Please Follow Up With: Karel Oliva MD When: in 2 weeks
--- NOTE | 2017-08-24 16:21 | DCINST_ITS ---
- Discharge Diagnoses Current Active Problems: Current Active and Chronic Problems (Last Updated 08/16/17 @ 15:08 by Francheska Mahoney) PAF (paroxysmal atrial fibrillation) (Chronic) You will use the following diet at home:: No restrictions Your food should be the consistency of: Regular Your liquids should be the consistency of: Regular/Thin Discharge Activity: Return to Normal Activity Weight Bearing Status: Full weight bearing Allergies/Adverse Reactions: Allergies Penicillins Allergy (Verified 08/21/17 21:07) Hives levofloxacin [From Levaquin] Adverse Reaction (Severe, Verified 08/21/17 21:07) Other fluid in lungs Medications to take at Discharge Amlodipine [Norvasc] 10 mg PO DAILY 12/19/13 Aspirin [Aspirin, Baby] 81 mg PO DAILY@0800 12/19/13 Atorvastatin Calcium [Lipitor] 20 mg PO QHS 12/19/13 Leflunomide [Arava] 20 mg PO DAILY 12/19/13 [place]-3 Fatty Acids/Fish Oil [[place] 3 1,000 mg Softgel] 1 ea PO BID 12/19/13 Albuterol Inhaler [Ventolin Hfa] 2 puff INHALATION Q4H PRN PRN 07/31/17 Folic Acid 1 mg PO DAILY@0800 07/31/17 Ipratropium/Albuterol Sulfate [Duoneb] 3 ml INHALATION TID PRN PRN 07/31/17 Lactobacillus Rhamnosus GG [Culturelle] 2 ea PO TID 07/31/17 Sennosides/Docusate Sodium [Senna-Docusate Sodium Tablet] 2 ea PO BID 07/31/17 Amino AC/Protein Hydr/Whey Pro [Liquacel Liquid Protein] 2 cap PO DAILY Gabapentin [Neurontin] 100 mg PO TIDCM #90 cap 08/07/17 melatonin 2.5 mg chewable tablet 2.5 mg PO HS PRN 08/09/17 ascorbic acid (vitamin C) 500 mg capsule 500 mg PO DAILY 08/16/17 guaifenesin ER 1,200 mg tablet, extended release 12 hr 1,200 mg PO Q12H liqua-michel 2 cap PO DAILY 08/16/17 polyethylene glycol 3350 17 gram/dose oral powder 17 g PO QDAY PRN 08/16/17 Calcium Acetate [Phoslo Gel Cap] 1,334 mg PO TIDCM 08/21/17 Furosemide [Lasix] 80 mg PO DAILY 08/21/17 Oxycodone HCl/Acetaminophen [Percocet 5-325] 0.5 tab PO Q4H PRN 08/21/17 apixaban 2.5 mg tablet 2.5 mg PO BID #180 tab 08/22/17 atenolol 50 mg tablet 50 mg PO DAILY #90 tab 08/22/17 ipratropium-albuterol 0.5 mg-3 mg(2.5 mg base)/3 mL nebulization soln 3 ml INHALATION TID PRN #180 ml 08/22/17 pantoprazole 40 mg tablet,delayed release 40 mg PO QAM #90 tab 08/22/17 Apixaban [Eliquis] 2.5 mg PO BID tablet 08/24/17 Ascorbic Acid [Vitamin C] 500 mg PO DAILY tablet 08/24/17 Aspirin [Aspirin, Baby] 81 mg PO DAILY@0800 tab.chew 08/24/17 Atenolol [Tenormin (beta victoriano)] 50 mg PO DAILY tablet 08/24/17 Atorvastatin Calcium [Lipitor] 20 mg PO QHS tablet 08/24/17 Calcium Acetate [Phoslo Gel Cap] 1,334 mg PO TIDCM capsule 08/24/17 Folic Acid 1 mg PO DAILY@0800 tablet 08/24/17 Furosemide [Lasix] 80 mg PO DAILY tablet 08/24/17 Gabapentin [Neurontin] 100 mg PO TIDCM capsule 08/24/17 Guaifenesin [Mucinex] 1,200 mg PO Q12 tablet 08/24/17 Lactobacillus Acidophilus [Acidophilus] 2 tablet PO TID tablet 08/24/17 Leflunomide 20 mg PO DAILY tablet 08/24/17 Melatonin 2.5 mg PO QHS PRN tablet 08/24/17 [place]-3 Acid Ethyl Esters [Lovaza] 1 gm PO BID capsule 08/24/17 Pantoprazole Sodium [Protonix] 40 mg PO QAM tablet 08/24/17 Prednisone 10 mg PO UD #30 tab 08/24/17 The following prescriptions were given: Prednisone 10 mg PO UD #30 tab Primary Care Physician: Arvind Vallecillo MD [Primary Care Provider] - Please follow up with your Primary Care Physician in: in 2 weeks Please Follow Up With: Derrek Lee MD When: as directed Please Follow Up With: Karel Oliva MD When: in 2 weeks
[2017-08-24 17:01] LABS: Bedside Glucose 250 mg/dL (70-110)
--- NOTE | 2017-08-26 09:15 | PCM.DC.SUM ---
Discharge Date and Diagnosis Date of Admission: 08/21/17 Date of Discharge: 08/24/17 - Primary Discharge Diagnosis #1 acute on chronic hypoxic respiratory failure secondary to acute on chronic diastolic CHF, respiratory syncytial virus infection/bronchitis, and volume overload from end-stage renal disease #2 metabolic encephalopathy #3 respiratory syncytial virus infection/bronchitis #4 pulmonary hypertension #5 end-stage renal disease requiring chronic peritoneal dialysis #6 Paroxysmal atrial fibrillation #7 hyperkalemia - Secondary Discharge Diagnosis Chronic Problems (Last Updated 08/16/17 @ 15:08 by Francheska Mahoney) PAF (paroxysmal atrial fibrillation) (Chronic) IBS (irritable bowel syndrome) (Chronic) Hyperlipemia (Chronic) PEARSON (dyspnea on exertion) (Chronic) ESRD (end stage renal disease) (Chronic) HTN (hypertension) (Chronic) Rheumatoid arthritis (Chronic) Chronic back pain (Chronic) Hospital Course and Treatment Operations: None Procedures: None, Dialysis - Peritoneal dialysis Summary of Care Provided: The patient is a 76 year old M was seen in the emergency room at [facility] with chief complaint of increased shortness of breath. Patient was on home O2 at home for chronic hypoxic respiratory failure and has severe pulmonary hypertension and end-stage renal disease. Workup in the emergency room included a chest x-ray which showed bilateral infiltrates suggestive of CHF, possible left lower airspace disease is noted to be present, creatinine and BUN were elevated in keeping with the patient's end-stage renal disease-he gives himself peritoneal dialysis at home. Patient was given aerosol treatments in the emergency room, patient refused BiPAP, hospitalist service was called to admit the patient for possible healthcare acquired pneumonia. He was given aztreonam and vancomycin IV in the emergency room. He was also given IV Zithromax and Rocephin. Patient was admitted to PCU, his mental status at times was poor and he was somnolent and responded only to painful stimuli. After a period of time however patient's mental status improved and he was alert, this was felt to be secondary to metabolic encephalopathy. He was seen in consultation by nephrology and pulmonary medicine, it was felt that the patient's bilateral infiltrates were actually secondary to fluid overload, acute on chronic diastolic congestive heart failure, and his respiratory panel also was positive for RSV and he was felt to have an RSV infection with bronchitis. Patient improved during his hospital stay, on 08/24/17, patient was seen and examined and felt to be in stable condition for discharge home Discharge Activity: Return to Normal Activity Weight Bearing Status: Full weight bearing Home Medications: Medications to take at Discharge Amlodipine [Norvasc] 10 mg PO DAILY 12/19/13 Aspirin [Aspirin, Baby] 81 mg PO DAILY@0800 12/19/13 Atorvastatin Calcium [Lipitor] 20 mg PO QHS 12/19/13 Leflunomide [Arava] 20 mg PO DAILY 12/19/13 [place]-3 Fatty Acids/Fish Oil [[place] 3 1,000 mg Softgel] 1 ea PO BID 12/19/13 Albuterol Inhaler [Ventolin Hfa] 2 puff INHALATION Q4H PRN PRN 07/31/17 Folic Acid 1 mg PO DAILY@0800 07/31/17 Ipratropium/Albuterol Sulfate [Duoneb] 3 ml INHALATION TID PRN PRN 07/31/17 Lactobacillus Rhamnosus GG [Culturelle] 2 ea PO TID 07/31/17 Sennosides/Docusate Sodium [Senna-Docusate Sodium Tablet] 2 ea PO BID 07/31/17 Amino AC/Protein Hydr/Whey Pro [Liquacel Liquid Protein] 2 cap PO DAILY 08/04/17 Gabapentin [Neurontin] 100 mg PO TIDCM #90 cap 08/07/17 melatonin 2.5 mg chewable tablet 2.5 mg PO HS PRN 08/09/17 ascorbic acid (vitamin C) 500 mg capsule 500 mg PO DAILY 08/16/17 guaifenesin ER 1,200 mg tablet, extended release 12 hr 1,200 mg PO Q12H 08/16/17 liqua-michel 2 cap PO DAILY 08/16/17 polyethylene glycol 3350 17 gram/dose oral powder 17 g PO QDAY PRN 08/16/17 Calcium Acetate [Phoslo Gel Cap] 1,334 mg PO TIDCM 08/21/17 Furosemide [Lasix] 80 mg PO DAILY 08/21/17 Oxycodone HCl/Acetaminophen [Percocet 5-325] 0.5 tab PO Q4H PRN 08/21/17 apixaban 2.5 mg tablet 2.5 mg PO BID #180 tab 08/22/17 atenolol 50 mg tablet 50 mg PO DAILY #90 tab 08/22/17 ipratropium-albuterol 0.5 mg-3 mg(2.5 mg base)/3 mL nebulization soln 3 ml INHALATION TID PRN #180 ml 08/22/17 pantoprazole 40 mg tablet,delayed release 40 mg PO QAM #90 tab 08/22/17 Apixaban [Eliquis] 2.5 mg PO BID tablet 08/24/17 Ascorbic Acid [Vitamin C] 500 mg PO DAILY tablet 08/24/17 Aspirin [Aspirin, Baby] 81 mg PO DAILY@0800 tab.chew 08/24/17 Atenolol [Tenormin (beta victoriano)] 50 mg PO DAILY tablet 08/24/17 Atorvastatin Calcium [Lipitor] 20 mg PO QHS tablet 08/24/17 Calcium Acetate [Phoslo Gel Cap] 1,334 mg PO TIDCM capsule 08/24/17 Folic Acid 1 mg PO DAILY@0800 tablet 08/24/17 Furosemide [Lasix] 80 mg PO DAILY tablet 08/24/17 Gabapentin [Neurontin] 100 mg PO TIDCM capsule 08/24/17 Guaifenesin [Mucinex] 1,200 mg PO Q12 tablet 08/24/17 Lactobacillus Acidophilus [Acidophilus] 2 tablet PO TID tablet 08/24/17 Leflunomide 20 mg PO DAILY tablet 08/24/17 Melatonin 2.5 mg PO QHS PRN tablet 08/24/17 [place]-3 Acid Ethyl Esters [Lovaza] 1 gm PO BID capsule 08/24/17 Pantoprazole Sodium [Protonix] 40 mg PO QAM tablet 08/24/17 Prednisone 10 mg PO UD #30 tab 08/24/17 Following Prescrptions Were Given to Patient: Prednisone 10 mg PO UD #30 tab Primary Care Physician: Arvind Vallecillo MD [Primary Care Provider] - Please follow up with your Primary Care Physician in: in 2 weeks Please Follow Up With: Derrek Lee MD When: as directed Please Follow Up With: Karel Oliva MD When: in 2 weeks Please Follow Up With: Arvind Vallecillo MD When: 2 weeks Disposition: Home Minutes spent on discharge:: 35 Patient Condition:: Stable Meaningful Use Info Meaningful Use Diagnoses (Choose all that apply): CHF - CHF WALDEMAR/ARB ordered at discharge?: No Reason WALDEMAR/ARB not ordered?: Allergy - Patient has diastolic congestive heart failure Documented LVEF (%): 65 Code Visit Inpatient E&M: 95645 Disch Hosp
--- NOTE | 2017-08-26 09:25 | DS.PCM_ITS ---
Discharge Date and Diagnosis Date of Admission: 08/21/17 Date of Discharge: 08/24/17 - Primary Discharge Diagnosis #1 acute on chronic hypoxic respiratory failure secondary to acute on chronic diastolic CHF, respiratory syncytial virus infection/bronchitis, and volume overload from end-stage renal disease #2 metabolic encephalopathy #3 respiratory syncytial virus infection/bronchitis #4 pulmonary hypertension #5 end-stage renal disease requiring chronic peritoneal dialysis #6 Paroxysmal atrial fibrillation #7 hyperkalemia - Secondary Discharge Diagnosis Chronic Problems (Last Updated 08/16/17 @ 15:08 by Francheska Mahoney) PAF (paroxysmal atrial fibrillation) (Chronic) IBS (irritable bowel syndrome) (Chronic) Hyperlipemia (Chronic) [place]ARSON (dyspnea on exertion) (Chronic) ESRD (end stage renal disease) (Chronic) HTN (hypertension) (Chronic) Rheumatoid arthritis (Chronic) Chronic back pain (Chronic) Hospital Course and Treatment Operations: None Procedures: None, Dialysis - Peritoneal dialysis Summary of Care Provided: The patient is a 76 year old M was seen in the emergency room at [facility] with chief complaint of increased shortness of breath. Patient was on home O2 at home for chronic hypoxic respiratory failure and has severe pulmonary hypertension and end-stage renal disease. Workup in the emergency room included a chest x-ray which showed bilateral infiltrates suggestive of CHF, possible left lower airspace disease is noted to be present, creatinine and BUN were elevated in keeping with the patient's end-stage renal disease-he gives himself peritoneal dialysis at home. Patient was given aerosol treatments in the emergency room, patient refused BiPAP, hospitalist service was called to admit the patient for possible healthcare acquired pneumonia. He was given aztreonam and vancomycin IV in the emergency room. He was also given IV Zithromax and Rocephin. Patient was admitted to PCU, his mental status at times was poor and he was somnolent and responded only to painful stimuli. After a period of time however patient's mental status improved and he was alert, this was felt to be secondary to metabolic encephalopathy. He was seen in consultation by nephrology and pulmonary medicine, it was felt that the patient's bilateral infiltrates were actually secondary to fluid overload, acute on chronic diastolic congestive heart failure , and his respiratory panel also was positive for RSV and he was felt to have an RSV infection with bronchitis. Patient improved during his hospital stay, on 08/24/17, patient was seen and examined and felt to be in stable condition for discharge home Discharge Activity: Return to Normal Activity Weight Bearing Status: Full weight bearing Home Medications: Medications to take at Discharge Amlodipine [Norvasc] 10 mg PO DAILY 12/19/13 Aspirin [Aspirin, Baby] 81 mg PO DAILY@0800 12/19/13 Atorvastatin Calcium [Lipitor] 20 mg PO QHS 12/19/13 Leflunomide [Arava] 20 mg PO DAILY 12/19/13 [place]-3 Fatty Acids/Fish Oil [[place] 3 1,000 mg Softgel] 1 ea PO BID 12/19/13 Albuterol Inhaler [Ventolin Hfa] 2 puff INHALATION Q4H PRN PRN 07/31/17 Folic Acid 1 mg PO DAILY@0800 07/31/17 Ipratropium/Albuterol Sulfate [Duoneb] 3 ml INHALATION TID PRN PRN 07/31/17 Lactobacillus Rhamnosus GG [Culturelle] 2 ea PO TID 07/31/17 Sennosides/Docusate Sodium [Senna-Docusate Sodium Tablet] 2 ea PO BID 07/31/17 Amino AC/Protein Hydr/Whey Pro [Liquacel Liquid Protein] 2 cap PO DAILY Gabapentin [Neurontin] 100 mg PO TIDCM #90 cap 08/07/17 melatonin 2.5 mg chewable tablet 2.5 mg PO HS PRN 08/09/17 ascorbic acid (vitamin C) 500 mg capsule 500 mg PO DAILY 08/16/17 guaifenesin ER 1,200 mg tablet, extended release 12 hr 1,200 mg PO Q12H liqua-michel 2 cap PO DAILY 08/16/17 polyethylene glycol 3350 17 gram/dose oral powder 17 g PO QDAY PRN 08/16/17 Calcium Acetate [Phoslo Gel Cap] 1,334 mg PO TIDCM 08/21/17 Furosemide [Lasix] 80 mg PO DAILY 08/21/17 Oxycodone HCl/Acetaminophen [Percocet 5-325] 0.5 tab PO Q4H PRN 08/21/17 apixaban 2.5 mg tablet 2.5 mg PO BID #180 tab 08/22/17 atenolol 50 mg tablet 50 mg PO DAILY #90 tab 08/22/17 ipratropium-albuterol 0.5 mg-3 mg(2.5 mg base)/3 mL nebulization soln 3 ml INHALATION TID PRN #180 ml 08/22/17 pantoprazole 40 mg tablet,delayed release 40 mg PO QAM #90 tab 08/22/17 Apixaban [Eliquis] 2.5 mg PO BID tablet 08/24/17 Ascorbic Acid [Vitamin C] 500 mg PO DAILY tablet 08/24/17 Aspirin [Aspirin, Baby] 81 mg PO DAILY@0800 tab.chew 08/24/17 Atenolol [Tenormin (beta victoriano)] 50 mg PO DAILY tablet 08/24/17 Atorvastatin Calcium [Lipitor] 20 mg PO QHS tablet 08/24/17 Calcium Acetate [Phoslo Gel Cap] 1,334 mg PO TIDCM capsule 08/24/17 Folic Acid 1 mg PO DAILY@0800 tablet 08/24/17 Furosemide [Lasix] 80 mg PO DAILY tablet 08/24/17 Gabapentin [Neurontin] 100 mg PO TIDCM capsule 08/24/17 Guaifenesin [Mucinex] 1,200 mg PO Q12 tablet 08/24/17 Lactobacillus Acidophilus [Acidophilus] 2 tablet PO TID tablet 08/24/17 Leflunomide 20 mg PO DAILY tablet 08/24/17 Melatonin 2.5 mg PO QHS PRN tablet 08/24/17 [place]-3 Acid Ethyl Esters [Lovaza] 1 gm PO BID capsule 08/24/17 Pantoprazole Sodium [Protonix] 40 mg PO QAM tablet 08/24/17 Prednisone 10 mg PO UD #30 tab 08/24/17 Following Prescrptions Were Given to Patient: Prednisone 10 mg PO UD #30 tab Primary Care Physician: Arvind Vallecillo MD [Primary Care Provider] - Please follow up with your Primary Care Physician in: in 2 weeks Please Follow Up With: Derrek Lee MD When: as directed Please Follow Up With: Karel Oliva MD When: in 2 weeks Please Follow Up With: Arvind Vallecillo MD When: 2 weeks Disposition: Home Minutes spent on discharge:: 35 Patient Condition:: Stable Meaningful Use Info Meaningful Use Diagnoses (Choose all that apply): CHF - CHF WALDEMAR/ARB ordered at discharge?: No Reason WALDEMAR/ARB not ordered?: Allergy - Patient has diastolic congestive heart failure Documented LVEF (%): 65 Code Visit Inpatient E&M: 58824 Disch Hosp
== END 2017-08-24 18:39 | disposition home or self-care (01) | DRG 291 ==
LOC: ED 21:23 → PCU 23:37 → ICU 08-22 20:27 → PCU 08-23 09:31
PROVIDERS: Internal Medicine Critical Care Medicine; Nurse Practitioner Family; Admitting Provider Family Medicine; Emergency Provider Emergency Medicine; Family Provider Internal Medicine; PCP Internal Medicine; Visit Provider Internal Medicine
DX: I13.2 Hypertensive heart and chronic kidney disease with heart failure and with stage 5 chronic kidney disease, or end stage renal disease (principal); N18.6 End stage renal disease; J96.21 Acute and chronic respiratory failure with hypoxia; G93.41 Metabolic encephalopathy; E87.5 Hyperkalemia; E87.1 Hypo-osmolality and hyponatremia; B97.4 Respiratory syncytial virus as the cause of diseases classified elsewhere; I48.0 Paroxysmal atrial fibrillation; G25.3 Myoclonus; I50.33 Acute on chronic diastolic (congestive) heart failure; I07.1 Rheumatic tricuspid insufficiency; I27.20 Pulmonary hypertension, unspecified; E78.5 Hyperlipidemia, unspecified; J44.9 Chronic obstructive pulmonary disease, unspecified; K21.9 Gastro-esophageal reflux disease without esophagitis; M06.9 Rheumatoid arthritis, unspecified; K58.9 Irritable bowel syndrome, unspecified; D63.8 Anemia in other chronic diseases classified elsewhere; G89.29 Other chronic pain; M54.9 Dorsalgia, unspecified; Z87.891 Personal history of nicotine dependence; Z99.2 Dependence on renal dialysis; Z79.82 Long term (current) use of aspirin; D63.1 Anemia in chronic kidney disease
CPT/HCPCS: 36415; 36600; 71045; 71046; 80048; 82009; 82140; 82803; 82947; 82962; 83036; 83605; 84484; 85014; 85018; 85025; 85027; 87040; 87633; 87641; 90947; 93005; 94002; 94640; 94667; 94762; 99285; J0885; J7050; A4216; G0257

== ENCOUNTER → 2017-08-29 11:03 | Outpatient (CLI) | payer MEDICARE, OTHER, SELFPAY ==
--- NOTE | 2017-08-29 11:00 | VDUE_ITS ---
Reason For Study: Assess for possible dialysis access placement Right Arm Left Arm Right Cephalic Vein at the wrist Left Cephalic Vein at the wrist measures .12 measures .13 x .15 cm. x .13 cm. Right Cephalic Vein in the forearm Left Cephalic Vein in the forearm measures .21 x .21 cm. measures .15 x .14 cm. Right Cephalic Vein below antecub Left Cephalic Vein below antecub measures .29 x .31 cm. measures .26 x .26 cm. Right Cephalic Vein above antecub Left Cephalic Vein above antecub measures .18 x .19 cm. measures .12 x .14 cm. Right Cephalic Vein mid bicep measures .19 Left Cephalic Vein at mid bicep measures .14 x .20 cm. x .15 cm. Right Cephalic Vein at the shoulder Left Cephalic Vein at the shoulder measures .19 x .20 cm. measures .23 x .25 cm. Right Basilic Vein at the origin Basilic vein at origin measures .41 x .46 measures .53 x .59 cm. cm. Right Basilic Vein mid bicep measures .46 Basilic vein at bicep measures .41 x .41 cm. x .47 cm. Basilic vein above antecub measures .39 Right Basilic Vein above antecub x .40 cm. measures .30 x .32 cm. Brachial artery - .43 x .47 cm with a Brachial artery - .52 x .54 cm with a velocity of 101.0 cm/sec velocity of 80.9 cm/sec Radial artery - .34 x .38 cm with a velocity Radial artery - .32 x .32 cm with a velocity of 80.4 cm/sec. of 78.2 cm/sec. < Interpretation Summary Small bilateral cephalic veins Adquate bilateral upper arm basilic veins Adquate bilateral brachial and radial arteries. Ordering Physician: Kip Juarez Referring Physician: Jenny Sotomayor Performed By: Deisy Tello RVT
== END ==
PROVIDERS: Family Provider Internal Medicine; PCP Internal Medicine; Visit Provider Surgery
DX: Z01.818 Encounter for other preprocedural examination (principal); N18.3 Chronic kidney disease, stage 3 (moderate)
CPT/HCPCS: 93970

== ENCOUNTER 2017-08-31 07:17 | Day surgery (SDC) | payer MEDICARE, OTHER, SELFPAY ==
[2017-08-23 07:00] VITALS: BP 123/55
[2017-08-29 16:05] VITALS: BP 161/76; BMI 24.1
--- NOTE | 2017-08-31 07:28 | EKG12_ITS ---
Test Reason : PRE OP Blood Pressure : / mmHG Vent. Rate : 066 BPM Atrial Rate : 066 BPM P-R Int : 124 ms QRS Dur : 084 ms QT Int : 386 ms P-R-T Axes : 070 028 045 degrees QTc Int : 404 ms Sinus rhythm with Premature atrial complexes Nonspecific T wave abnormality Abnormal ECG Confirmed by KATHY LEVINE, BRENDA ([id number]), staff editor YESENIA MCHUGH ([id number]) on 09/05/2017 2:53:49 PM Referred By: Kip Juarez Confirmed By:BRENDA CHAVEZ MD
[2017-08-31 07:38] VITALS: BP 138/64; PULSE 84; RESP 18; TEMP 36.5; O2SAT 96; BMI 21.6
[2017-08-31 08:31] LABS: Hematocrit 29.7 % (40-54); Hemoglobin 8.9 g/dl (13.0-16.5); Mean Corpuscular Hgb 30.8 pg (27.0-32.0); Mean Corpuscular Volume 102.8 fL (80-94); Mean Platelet Vol. 9.3 fl (6.2-12.0); Platelet Count 537 K/mm3 (150-450); RBC Distribution Width CV 15.8 % (11.6-14.6); RBC Distribution Width SD 57.8 fl (35.1-43.9); Red Blood Count 2.89 M/mm3 (4.6-6.2); Scan Indicated on CBC? Y/N NO; White Blood Count 11.9 K/mm3 (4.4-11.0)
[2017-08-31 08:52] LABS: Anion Gap 10 (5-15); BUN 46 mg/dL (7-18); BUN/Creat Ratio 7.2 RATIO (10-20); Calcium,Total 7.3 mg/dL (8.5-10.1); Chloride 99 mmol/L (98-107); Creatinine, Serum 6.35 mg/dL (0.70-1.30); EST Glomerular Filtration Rate 9 mL/min (>60); Est Glom Filt Rate - Afr Amer 11 mL/min (>60); Estimated Creatinine Clearance 9.16 ml/min; Glucose 85 mg/dL (70-110); Potassium 2.9 mmol/L (3.5-5.1); Sodium Level 139 mmol/L (136-145)
[2017-08-31] MEDS: Clindamycin 900 MG/50 ML BAG 75 MG IV (09:37)
--- NOTE | 2017-08-31 09:46 | PCM.DC.POR ---
Discharge Diet: Renal Diet Discharge Activity: May Not Drive Additional Activity Instructions:: Please keep the catheter clean and dry. The dialysis center will assist with dressing changes Allergies/Adverse Reactions: Allergies Penicillins Allergy (Verified 08/30/17 09:33) Hives levofloxacin [From Levaquin] Adverse Reaction (Severe, Verified 08/30/17 09:33) Other fluid in lungs Medications to take at Discharge Amlodipine [Norvasc] 10 mg PO DAILY 12/19/13 Leflunomide [Arava] 20 mg PO DAILY 12/19/13 [place]-3 Fatty Acids/Fish Oil [[place] 3 1,000 mg Softgel] 1 ea PO BID 12/19/13 Albuterol Inhaler [Ventolin Hfa] 2 puff INHALATION Q4H PRN PRN 07/31/17 Ipratropium/Albuterol Sulfate [Duoneb] 3 ml INHALATION TID PRN PRN 07/31/17 Amino AC/Protein Hydr/Whey Pro [Liquacel Liquid Protein] 1 pkt PO DAILY 08/04/17 ascorbic acid (vitamin C) 500 mg capsule 500 mg PO DAILY 08/16/17 liqua-michel 2 cap PO DAILY 08/16/17 polyethylene glycol 3350 17 gram/dose oral powder 17 g PO QDAY PRN 08/16/17 Oxycodone HCl/Acetaminophen [Percocet 5-325] 0.5 tab PO Q4H PRN 08/21/17 Apixaban [Eliquis] 2.5 mg PO BID tablet 08/24/17 Aspirin [Aspirin, Baby] 81 mg PO DAILY@0800 tab.chew 08/24/17 Atenolol [Tenormin (beta victoriano)] 50 mg PO DAILY tablet 08/24/17 Atorvastatin Calcium [Lipitor] 20 mg PO QHS tablet 08/24/17 Calcium Acetate [Phoslo Gel Cap] 1,334 mg PO TIDCM capsule 08/24/17 Folic Acid 1 mg PO DAILY@0800 tablet 08/24/17 Gabapentin [Neurontin] 100 mg PO TIDCM capsule 08/24/17 Guaifenesin [Mucinex] 1,200 mg PO Q12 tablet 08/24/17 Lactobacillus Acidophilus [Acidophilus] 2 tablet PO TID tablet 08/24/17 Melatonin 2.5 mg PO QHS PRN tablet 08/24/17 Pantoprazole Sodium [Protonix] 40 mg PO QAM tablet 08/24/17 Prednisone 10 mg PO UD #30 tab 08/24/17 Primary Care Physician: Arvind Vallecillo MD [Primary Care Provider] - Please Follow Up With: Kip Juarez MD - [phone] When: Please plan to follow up in 2 weeks in the office.
--- NOTE | 2017-08-31 09:50 | DCINST_ITS ---
Discharge Diet: Renal Diet Discharge Activity: May Not Drive Additional Activity Instructions:: Please keep the catheter clean and dry. The dialysis center will assist with dressing changes Allergies/Adverse Reactions: Allergies Penicillins Allergy (Verified 08/30/17 09:33) Hives levofloxacin [From Levaquin] Adverse Reaction (Severe, Verified 08/30/17 09:33) Other fluid in lungs Medications to take at Discharge Amlodipine [Norvasc] 10 mg PO DAILY 12/19/13 Leflunomide [Arava] 20 mg PO DAILY 12/19/13 [place]-3 Fatty Acids/Fish Oil [[place] 3 1,000 mg Softgel] 1 ea PO BID 12/19/13 Albuterol Inhaler [Ventolin Hfa] 2 puff INHALATION Q4H PRN PRN 07/31/17 Ipratropium/Albuterol Sulfate [Duoneb] 3 ml INHALATION TID PRN PRN 07/31/17 Amino AC/Protein Hydr/Whey Pro [Liquacel Liquid Protein] 1 pkt PO DAILY ascorbic acid (vitamin C) 500 mg capsule 500 mg PO DAILY 08/16/17 liqua-michel 2 cap PO DAILY 08/16/17 polyethylene glycol 3350 17 gram/dose oral powder 17 g PO QDAY PRN 08/16/17 Oxycodone HCl/Acetaminophen [Percocet 5-325] 0.5 tab PO Q4H PRN 08/21/17 Apixaban [Eliquis] 2.5 mg PO BID tablet 08/24/17 Aspirin [Aspirin, Baby] 81 mg PO DAILY@0800 tab.chew 08/24/17 Atenolol [Tenormin (beta victoriano)] 50 mg PO DAILY tablet 08/24/17 Atorvastatin Calcium [Lipitor] 20 mg PO QHS tablet 08/24/17 Calcium Acetate [Phoslo Gel Cap] 1,334 mg PO TIDCM capsule 08/24/17 Folic Acid 1 mg PO DAILY@0800 tablet 08/24/17 Gabapentin [Neurontin] 100 mg PO TIDCM capsule 08/24/17 Guaifenesin [Mucinex] 1,200 mg PO Q12 tablet 08/24/17 Lactobacillus Acidophilus [Acidophilus] 2 tablet PO TID tablet 08/24/17 Melatonin 2.5 mg PO QHS PRN tablet 08/24/17 Pantoprazole Sodium [Protonix] 40 mg PO QAM tablet 08/24/17 Prednisone 10 mg PO UD #30 tab 08/24/17 Primary Care Physician: Arvind Vallecillo MD [Primary Care Provider] - Please Follow Up With: Kip Juarez MD - [phone] When: Please plan to follow up in 2 weeks in the office.
--- NOTE | 2017-08-31 09:50 | RAD_ITS ---
STUDY: X-RAY CHEST REASON FOR EXAM: Male, 76 years old. Hemodialysis catheter placement. TECHNIQUE: Single AP portable view of the chest. COMPARISON: Comparison is made with prior study dated August 23, 2017. FINDINGS: A right-sided hemodialysis catheter has been placed. The tip is at the junction of the superior vena cava and right atrium. Persistent pleural-parenchymal changes at the left lung base although there has been moderate degree of improvement. Stable appearance of the right lower lobe. Normal size heart. Normal mediastinum and dwight. Normal visualized pulmonary arteries. There is atherosclerotic calcification of the aortic arch with tortuosity. Normal visualized thoracic spine. Normal visualized ribs, clavicles, and shoulders. Electrodes from a TENS unit and once again seen overlying the lower dorsal spine. There is no demonstrated abnormality of the visualized soft tissue structures of the upper abdomen. RAD/Chest 1 View (Portable) IMPRESSION: The tip of the right dialysis catheter is at the junction of the superior vena cava and right atrium. Persistent pleural-parenchymal changes at the left lung base although there has been improvement as compared to prior study. Electronically Signed: Rod Mckinney MD at 11:22 EST Tel [phone], Service support ,
[2017-08-31] MEDS: Heparin 10,000 UNITS/10 ML Vial 10000 UNITS (10:25)
--- NOTE | 2017-08-31 10:25 | PCM.OPRPT ---
Problem List (1) ESRD (end stage renal disease) Status: Chronic Report of Operation Date of Procedure: 08/31/17 Pre-Operative Diagnosis: Stage V renal failure in need of hemodialysis access Post-Operative Diagnosis: Stage V renal failure in need of hemodialysis Surgery/Procedure Performed:: Right internal jugular tunneled 19 cm pre-curved palindrome catheter Description of Surgical Findings:: Timeout and informed consent was obtained. 76-year-old gentleman was taken to the operating place when the table. After some discussion and patient comfort was elected to undergo LMA general anesthesia. Clindamycin 900 mg given intravenous preoperatively. The right neck and chest were sterilely prepped and draped. Under ultrasound guidance 1% lidocaine mixed 50-50 with 0.5% Marcaine was used as local anesthetic. Total 10 cc was used. Under ultrasound guidance local was instilled. Micropuncture needle inserted. Micropuncture wire inserted. Local was instilled down upon the chest wall. Exit site was selected. A 19 cm pre-curved palindrome catheter was tunneled from the chest of the neck site. An 035 J-wire was placed through the micropuncture sheath. Then this tract was serially dilated. The sheath dilator was inserted over the wire. Fluoroscopy demonstrated good position. The sheath and dilator were removed. The catheter was advanced through the sheath. The sheath was split. The catheter was positioned to have a nice curvilinear position. It aspirated easily. It was flushed with saline and then 2 cc of heparinized saline per channel. The neck site was closed with interrupted 5-0 Vicryl subdermal stitch. The cath was secured to the skin with interrupted 3-0 nylon. Silver dressing followed by OpSite dressing was applied. Sponge instrument and needle counts were reported the surgeon for correct. Blood loss was minimal. He tolerated well was taken to recovery or insect condition apparent complication. Stat portable chest x-ray is pending Specimens. No drains. Blood loss minimal. Kip Juarez M.D., F.A.C.S. Type of Anesthesia:: General Anesthesiologist: Toni Randall
[2017-08-31 10:44] VITALS: BP 138/64; BP 87/50; PULSE 78; RESP 15; TEMP 36.4; O2SAT 96
[2017-08-31 11:00] VITALS: BP 111/45; BP 138/64; PULSE 58; RESP 16; O2SAT 97
[2017-08-31 11:15] VITALS: BP 116/50; BP 138/64; PULSE 72; RESP 16; TEMP 36.2; O2SAT 94
[2017-08-31 12:09] VITALS: BP 138/64
== END 2017-08-31 12:10 | disposition home or self-care (01) ==
LOC: SDC 07:18 → AC 07:18
PROVIDERS: Family Provider Internal Medicine; PCP Internal Medicine; Visit Provider Surgery
PROC: (CPT 36558; principal; 2017-08-31 09:00)
DX: I12.0 Hypertensive chronic kidney disease with stage 5 chronic kidney disease or end stage renal disease (principal); N18.6 End stage renal disease; E78.5 Hyperlipidemia, unspecified; K21.9 Gastro-esophageal reflux disease without esophagitis; I48.0 Paroxysmal atrial fibrillation; M06.9 Rheumatoid arthritis, unspecified; Z87.891 Personal history of nicotine dependence; Z79.82 Long term (current) use of aspirin
CPT/HCPCS: 36558; 36415; 71045; 76000; 80048; 85027; 93005; C1750

== ENCOUNTER → 2017-09-05 06:39 | Outpatient (CLI) | payer MEDICARE, OTHER, SELFPAY ==
[2017-08-23 07:00] VITALS: BP 123/55
[2017-08-31 07:38] VITALS: BMI 21.6
[2017-08-31 11:15] VITALS: BP 116/50
--- NOTE | 2017-09-05 15:17 | PFTCOMP_ITS ---
COMPLETE PULMONARY FUNCTION TEST INTERPRETATION Brief HPI: Patient is a 76 year old male, currently under the care of Jenny Sotomayor, who presents to [facility] for complete pulmonary function tests secondary to diagnosis of dyspnea on exertion. Respiratory therapist reports good effort and reproducible results. Interpretation: Forced expiration spirometry shows a severe large airways obstructive ventilatory defect with an FEV1 of 41 % predicted. There is no significant bronchodilator response by ATS criteria. Spirograms are of good quality and plateau slowly, indicating slowly emptying areas of the lungs. The respiratory flow volume loop shows decreased expiratory flow rates at all lung volumes consistent with airway obstruction. Lung volumes by body plethysmography show a normal total lung capacity at 5.89 L , 99 % predicted. All other lung volumes are within normal limits. Diffusion capacity by carbon monoxide is decreased at 41 % predicted. The airway resistance is elevated. No previous pulmonary function tests were available for review. Impression: Irreversible severe large airways obstructive ventilatory defect with a symmetric reduction diffusing capacity, consistent with a diagnosis of COPD.
== END ==
PROVIDERS: Family Provider Internal Medicine; PCP Internal Medicine; Visit Provider Nurse Practitioner Acute Care
DX: R06.09 Other forms of dyspnea (principal); J44.9 Chronic obstructive pulmonary disease, unspecified
CPT/HCPCS: 94060; 94726; 94729